=== PATIENT | female | born 1985 | race Caucasian/White ===

== ENCOUNTER 2020-06-11 18:19 | Inpatient (IN) | payer OTHER, SELFPAY ==
[2020-06-11] VITALS (8 sets, daily range): BP systolic 128–197; BP diastolic 69–146; PULSE 56–174; RESP 26–28; TEMP 36.5–36.8; O2SAT 98–100; BMI 21.2; BMI 19.6
--- NOTE | ~2020-06-11 | CT_ITS ---
CT HEAD WITHOUT CONTRAST CLINICAL INFORMATION: Cardiac arrest. COMPARISON: None available. TECHNIQUE: Contiguous axial imaging was performed from the skull base to vertex without intravenous administration of contrast. This CT examination was performed using dose optimization techniques as appropriate, variously including the following: *Automated exposure control *Adjustment of mA and/or kV according to patient size (this includes techniques or standardized protocols for targeted exams where dose is matched to indication/reason for exam; i.e. extremities or head) *Use of iterative reconstruction technique FINDINGS: Diffuse loss of curran to white matter differentiation throughout the cerebral hemispheres and cerebellar hemispheres bilaterally in keeping with global cerebral anoxic injury. Associated pseudo-subarachnoid hemorrhage with high density within the sulcal spaces related to cerebral edema opposing vasculature. I density along the tentorial leaflets and falx cerebri also most likely related to the presence of diffuse cerebral edema. There is diffuse cerebral sulcal effacement, partial effacement of the ventricular system, and partial effacement of the basilar cisterns and cistern surrounding the brainstem. Mild mucosal thickening within the ethmoid air cells and sphenoid sinuses bilaterally. The mastoid air cells are clear. CT/CT head/brain wo con IMPRESSION: Imaging findings compatible with severe global cerebral/cerebellar anoxic injury. There is curran white matter differentiation loss throughout the entire supratentorial and infratentorial brain. Cerebral edema results in diffuse cerebral sulcal effacement, partial effacement of the basilar cisterns, and psuedo-subarachnoid hemorrhage in the setting of diffuse cerebral edema. Findings discussed with Dr. Cason at 8:10 PM on 06/11/2020.
--- NOTE | ~2020-06-11 | XR_ITS ---
EXAMINATION: XR CHEST CLINICAL INFORMATION: Line placement COMPARISON: None TECHNIQUE: Frontal view of the chest was obtained. FINDINGS: An ET tube is present 3.5 cm above the palomo. Right IJ line has its tip in the distal SVC. The exam is otherwise unremarkable. XR/XR chest 1V IMPRESSION: ET tube and right IJ line in good position. No acute intrathoracic disease.
--- NOTE | ~2020-06-11 | XR_ITS ---
EXAMINATION: XR CHEST CLINICAL INFORMATION: Organ donor protocol COMPARISON: Chest radiographs 06/13/2020, 06/11/2020 TECHNIQUE: Portable upright AP view of the chest was obtained. FINDINGS: Endotracheal tube tip is approximately 3.2 cm above palomo. Right internal jugular central venous line tip at level distal superior vena cava. The vascularity is normal. There is no pneumothorax, pleural reaction, infiltrate, or effusion. Suspect disc atelectasis right posterior medial base overlying the diaphragm. No segmental atelectasis. The costophrenic sulci are clear. The heart is normal in size. The hilar and mediastinal contours and bony structures are unremarkable. XR/XR chest 1V IMPRESSION: 1. Suspect disc atelectasis right posterior medial base. Lungs otherwise clear. 2. ET tube tip 3.2 cm above palomo. 3. Right IJ tip at distal SVC.
--- NOTE | ~2020-06-11 | XR_ITS ---
EXAMINATION: XR CHEST CLINICAL INFORMATION: Organ donor protocol COMPARISON: June 12, 2020 TECHNIQUE: AP portable view of the chest was obtained. FINDINGS: Endotracheal tube tip lies approximately 3.5 cm above the palomo. Right internal jugular central venous catheter seen with tip at caval atrial junction. No pneumothorax or pleural effusion identified. Heart normal size. No evidence of pulmonary edema. XR/XR chest 1V IMPRESSION: No acute disease. Endotracheal tube and right internal jugular central venous catheter in place.
--- NOTE | ~2020-06-11 | CT_ITS ---
EXAMINATION: CT CERVICAL SPINE WITHOUT CONTRAST CLINICAL INFORMATION: cardiac arrest with rosc COMPARISON: None TECHNIQUE: Coronal and sagittal reformatted images are performed at CT scanner This CT examination was performed using dose optimization techniques as appropriate, variously including the following: *Automated exposure control *Adjustment of mA and/or kV according to patient size (this includes techniques or standardized protocols for targeted exams where dose is matched to indication/reason for exam; i.e. extremities or head) *Use of iterative reconstruction technique DLP: 250.78 mGy-cm FINDINGS: Status post anterior cervical spine fusion at C5-C6 and C6-C7. No acute abnormality. No fracture. No subluxation. No prevertebral soft tissue swelling. There are spurs at the anterior and posterior endplates from degenerative disc disease at C4-C5 with disc height narrowing. Facet joints are normal. Endotracheal tube in place. CT/CT cervical spine wo con IMPRESSION: 1. No acute abnormality 2. Degenerative spondylosis of cervical spine. 3. Status post anterior fusion C5-C6 C6-C7.
--- NOTE | ~2020-06-11 | CT_ITS ---
EXAMINATION: CT CHEST WITHOUT CONTRAST CLINICAL INFORMATION: cardiac arrest with rosc COMPARISON: Chest x-ray 06/11/2020 TECHNIQUE: Multidetector volumetric CT imaging of the chest was done. Axial MIP volume rendering provided. Sagittal and coronal reformatted images were obtained. This CT examination was performed using dose optimization techniques as appropriate, variously including the following: *Automated exposure control *Adjustment of mA and/or kV according to patient size (this includes techniques or standardized protocols for targeted exams where dose is matched to indication/reason for exam; i.e. extremities or head) *Use of iterative reconstruction technique DLP: 217.94+6.72 mGy-cm FINDINGS: There is motion which limits study. LUNGS: The lungs are clear with no evidence of inflammation or nodules. MEDIASTINUM: Endotracheal tube approximately 2 cm above the palomo. There is a right central catheter in superior vena cava. The heart size is normal. No pericardial effusion. No mediastinal mass or significant lymphadenopathy. PLEURA: There is no pleural effusion. No pleural mass or thickening. AXILLA: No lymphadenopathy. UPPER ABDOMEN: Visualized portions of solid organs and upper abdomen are unremarkable. OSSEOUS STRUCTURES: Unremarkable. CT/CT chest wo con IMPRESSION: 1. No acute abnormality of chest. 2. Endotracheal tube catheter about 2 cm both palomo. 3. Central port catheter tip in superior vena cava.
--- NOTE | ~2020-06-11 | CT_ITS ---
EXAMINATION: CT CHEST WITHOUT CONTRAST CT ABDOMEN AND PELVIS WITHOUT CONTRAST CLINICAL INFORMATION: Organ donation. COMPARISON: CT 06/11/2020 TECHNIQUE: Multidetector volumetric imaging was performed through the chest, abdomen and pelvis without contrast. Sagittal and coronal reformatted images were obtained on the technologist's workstation. Axial MIP volume rendering provided. This CT examination was performed using dose optimization techniques as appropriate, variously including the following: *Automated exposure control *Adjustment of mA and/or kV according to patient size (this includes techniques or standardized protocols for targeted exams where dose is matched to indication/reason for exam; i.e. extremities or head) *Use of iterative reconstruction technique DLP: 706 mGy-cm. FINDINGS: CHEST: Lungs: The endotracheal tube terminates 3 cm above the palomo. The central airways are patent there is patchy airspace opacity dependently in the right lower lobe, new from previous. Minimal dependent right upper lobe opacity as well, also new from previous. No pleural effusion or pneumothorax. There are no pulmonary parenchymal nodules. Mediastinum: The heart is of normal size. There is no pericardial effusion. Right internal jugular central venous catheter in place. No hilar or mediastinal lymphadenopathy. Chest Wall/Axilla: No lymphadenopathy. No chest wall mass. ABDOMEN/PELVIS: Liver, Gallbladder, Biliary Tree: The liver is normal in size, shape, and attenuation. No focal hepatic lesion or biliary ductal dilatation is present. Layering appearance in the gallbladder lumen may represent sludge. No radiopaque stones. No gallbladder wall thickening or pericholecystic fluid. Pancreas: Unremarkable. Spleen: Unremarkable. Adrenal Glands: Unremarkable. Kidneys and Ureters: The kidneys are normal in size, shape, and attenuation. No hydronephrosis or hydroureter. Left midpole cluster of calcifications measuring up to 0.7 cm, 5 cm from the posterior axillary line. There are at least 3 right lower pole calculi which measure up to 0.2 cm. Bladder: Dunham catheter within the bladder. Gastrointestinal Tract: The stomach and small bowel appear unremarkable. No dilated loops of bowel or evidence of obstruction. No diverticulosis. No colonic wall thickening or adjacent inflammatory changes. No free air. Small amount of free fluid in the pelvis which appears simple.. The appendix is unremarkable. Abdominal Wall: No hernia is demonstrated. Lymphovascular Structures: Lymph nodes: Normal. Vascular: Unremarkable. Pelvic Viscera: The uterus and adnexa are unremarkable. OSSEOUS STRUCTURES: No suspicious sclerotic or lytic bone lesions are identified. Vertebral body height and alignment is maintained. CT/CT abdomen pelvis wo con IMPRESSION: 1. Dependent airspace opacities are now seen in the right lower lobe and right upper lobe, new from prior. This could be associated with aspiration. Endotracheal tube in place which terminates 3 cm above the palomo. 2. Bilateral nonobstructing renal calculi. 3. Likely gallbladder sludge.
--- NOTE | 2020-06-11 18:30 | ECG_ITS ---
Test Reason : POSC Blood Pressure : / mmHG Vent. Rate : 109 BPM Atrial Rate : 115 BPM P-R Int : 226 ms QRS Dur : 086 ms QT Int : 432 ms P-R-T Axes : 069 072 -18 degrees QTc Int : 581 ms Afib with RVR Marked ST abnormality, possible inferior subendocardial injury Marked ST abnormality, possible anterior subendocardial injury Prolonged QT Abnormal ECG No previous ECGs available Referred By: Milli Alfonso Electronically Signed By:Levar Restrepo
--- NOTE | 2020-06-11 18:51 | ED_ITS ---
HPI - CPR General Chief Complaint: Cardiac Arrest/CPR Stated Complaint: cardiac arrest Time Seen by Provider: 06/11/20 18:25 Source: EMS Mode of arrival: EMS Limitations: other (CPR in progress) History of Present Illness HPI narrative: 35 yo female with opiate use disorder last seen well at 530pm found unresponsive with needles near her - bystanders 15mg IN narcan no response, PD started CPR, EMS on scene at 545pm patient no neuro response, no breathing, asytole, given 1 round of epi, intubated 7.0 tube had ROSC of sinus tachycardia, patient in ED no neuro response hypotensive, pulses intact MD complaint: found unresponsive Onset (ago): hour(s) (530pm last seen well found 15 minutes later unreponsive) Timing confirmed by: other (bystanders) Place: home AED applied by bystander/residential finish carpenter: Yes Shock advised: No Downtime before ACLS arrival (mins): 15 Initial findings in the field: unresponsive, no respirations and no pulse ROSC in the field: Yes Associated injuries: No Associated symptoms: other (found with needles ) Known history of: drug abuse Treatments prior to arrival: intubation, BMV, chest compressions and epinephrine mgs # (1) Related Data Allergies Allergy/AdvReac Type Severity Reaction Status Date / Time No Known Allergies Allergy Verified 06/11/20 18:29 Review of Systems Review of Systems: ROS unable to be obtained due to unresponsive ongoing CPR [facility] Past Medical History Source: unable to obtain (CPR in progress no prior visits) Medical History (Updated 06/11/20 @ 22:31 by Faye Sarmiento RN) Substance abuse Social History Social History Household Members: Unknown / Unable to assess Unable to assess alcohol history related to: Unable to respond Smoking Status: Unknown if ever smoked Use of substances other than those prescribed or required for medical reasons: Yes Substance Use Type: Crack/Cocaine, Heroin, Marijuana, Opiates and Unknown Last Used Substance: Just Prior to Admission Last Used Substance Other:: utox positive marijuana and cocaine Spiritual Healthcare Practices: unable Advance Directives: No Advance Directives Information Provided: No Recently lost weight without trying: Unsure Physical Exam Vital Signs: Vital Signs: Last Vital Signs Temp 98.4 F 06/12/20 00:54 Pulse 127 H 06/12/20 00:54 Resp 28 H 06/12/20 00:54 BP 73/48 L 06/12/20 00:54 Pulse Ox 100 06/12/20 00:54 Body Mass Index 21.2 Appearance: Pale unresponsive, intubated Eyes: pupils 4mm fixed and dilated ENT: Pharynx no gag reflex, intubatd 7.0 Neck: Normal inspection. Neck supple. CVS: tachycardic heart rate and rhythm. Pulses decreased in legs 1+ Respiratory: intubated Breath sounds equal with bagging Abdomen: Soft and no trauma seen Skin: Skin cool to touch pale skin color. Normal skin turgor. Extremities: active track nguyen noted, IO placed Neuro: no response to painful stimuli, fixed and dilated pupils Course Course Course Narrative: given 100mcg of phenylephrine push dose for BPs 40 to 50 systolic during central line placement no response to levophed will add on phenylephrine given her tachycardia for better BP improvement called to bedside as the patient became acutely tachycardic with some 4 beat runs of VTACH and narrow irregular complex tachycardia unsure cause, I shut the levophed off immediately, call to Cardiology if this persists start amiodarone It was just discovered that in fact we believe 1000mcg of phenylephrine was pushed in error - charge machine operator aware, suspect half life of medication 30 minutes, may need to treat HTN with either phentolamine or nitroprusside CT scan done - ?SAH noted, will start nicardipine at this time, requested images sent to [facility] and will call [facility] 755pm call from [facility] 812pm - diffuse anoxic injury, bilateral uncal herniation, SAH because of edema - doubt NSGY would be beneficial call to our ICU team given CT head will admit, cancel transfer to [facility] discussed with her boyfriend Mando about grave prognosis, attempting to reach mother Kaitlin Coleman [phone] - able to contact aware of grave prognosis and CT findings Procedures Central Line Placement Right IJ: Time Out Performed: Yes Patient Placed on Monitor/Pulse Ox: Yes MD Prep: mask, gown, gloves and other Central Line Prep: Chlorhexidine scrub Central Line Lumen Inserted: triple Post Procedure: sutured in place, good blood return, all ports aspirated, flushed, capped and sterile dressing applied Post Procedure X-Ray: tip of catheter in good position Patient Tolerated Procedure: well Complications: none MDM - Cardiac Arrest/CPR MDM Narrative Medical decision making narrative: 35 yo female with substance abuse found with needles possible prolonged downtime, no neuro response at this time, will place on vent, image CT head/cspine/chest, patient was ROSC in field with concerning outcome given her lack of neurologic function at this time Lab Data Result diagrams: 06/11/20 18:47 06/11/20 18:48 Labs: Lab Results 06/11/20 06/11/20 06/11/20 Range/Units 18:22 18:47 18:47 WBC 10.3 (4.8-10.8) X10*3/uL RBC 2.99 L (4.20-5.50) X10*6/uL Hgb 9.5 L (12.0-16.0) g/dl Hct 30.3 L (37-47) % MCV 101.3 H (80-98) fL MCH 31.8 (27.0-33.0) pg MCHC 31.4 (31.0-35.0) g/dl RDW 13.1 (11.0-16.0) % Plt Count 240 (160-400) X10*3/uL MPV 9.8 (9.4-12.3) fL Immature Gran % (Auto) Cancelled Neut % (Auto) Cancelled Lymph % (Auto) Cancelled [place] % (Auto) Cancelled Eos % (Auto) Cancelled Baso % (Auto) Cancelled Lymph # (Auto) Cancelled [place] # (Auto) Cancelled Eos # (Auto) Cancelled Baso # (Auto) Cancelled Abs Immat Gran (auto) Cancelled Absolute Neuts (auto) Cancelled Absolute Nucleated RBC 0.000 (0.0-0.012) X10*3/uL Nucleated RBC % (auto) 0.0 (0.0-0.2) /100WBC Neutrophils % (Manual) 60 (45-73) % Band Neutrophils % 4 (3-5) % Lymphocytes % (Manual) 28 (20-40) % Monocytes % (Manual) 4 (2-11) % Eosinophils % (Manual) 2 (0-4) % Metamyelocytes % 1 % Myelocytes % 1 % Abs Neuts (Manual) 6.6 (2.2-7.9) X10*3/uL Lymphocytes # (Manual) 2.9 (0.6-4.8) X10*3/uL Monocytes # (Manual) 0.4 (0.0-1.2) X10*3/uL Eosinophils # (Manual) 0.2 (0.0-0.8) X10*3/UL Metamyelocytes # 0.1 X10*3/uL Myelocytes # 0.1 X10*/uL Platelet Estimate NORMAL (NORMAL) Plt Morphology Comment NORMAL RBC Morphology NORMAL PT 13.2 H (10.8-13.0) SEC INR 1.1 (0.9-1.1) VBG pH (7.32-7.43) VBG pCO2 mmHg VBG pO2 mmHg VBG HCO3 (22-26) mmol/L VBG O2 Saturation % VBG Base Excess mmol/L Sodium (135-145) mmol/L Potassium (3.3-5.1) mmol/L Chloride (96-108) mmol/L Carbon Dioxide (22-29) mmol/L Anion Gap (12-20) BUN (9-16) mg/dL Creatinine (0.5-1.4) mg/dL Estim Creat Clear Calc Estimated GFR POC Glucose 325 H (60-115) mg/dL Random Glucose (60-115) mg/dL Lactic Acid (0.5-2.0) mmol/L Calcium (8.4-10.2) mg/dL Magnesium (1.6-2.6) mg/dL Total Bilirubin (0.0-1.0) mg/dL Direct Bilirubin (0.0-0.5) mg/dL AST (5-31) U/L ALT (0-31) U/L Alkaline Phosphatase (39-117) U/L Troponin I High Sens (<3.5-17.0) ng/L Total Protein (6.5-8.0) g/dL Albumin (3.5-5.0) g/dL Lipase (8-78) U/L Urine Color Urine Appearance Urine pH (5.0-8.0) Ur Specific [place] (1.005-1.025) Urine Protein (NEG-TRACE) MG/DL Urine Glucose (UA) (NEG) MG/DL Urine Ketones (NEG) MG/DL Urine Blood (NEG) Urine Nitrite (NEG) Ur Leukocyte Esterase (NEG) Urine RBC (0) /HPF Urine WBC (0-4) /HPF Ur Squamous Epith Cells /LPF Urine Bacteria /LPF Urine Test (NEGATIVE) Salicylates (15-30) mg/dL Urine Opiates Screen (Not Detect) Acetaminophen (<30) mcg/mL Ur Barbiturates Screen (Not Detect) Ur Phencyclidine Scrn (Not Detect) Ur Amphetamines Screen (Not Detect) U Benzodiazepines Scrn (Not Detect) Urine Cocaine Screen (Not Detect) U Marijuana (THC) Screen (Not Detect) Ethyl Alcohol mg/dL COVID-19 ([facility]US) (Negative) COVID-19 Clin Com 06/11/20 06/11/20 06/11/20 Range/Units 18:47 18:47 18:48 WBC (4.8-10.8) X10*3/uL RBC (4.20-5.50) X10*6/uL Hgb (12.0-16.0) g/dl Hct (37-47) % MCV (80-98) fL MCH (27.0-33.0) pg MCHC (31.0-35.0) g/dl RDW (11.0-16.0) % Plt Count (160-400) X10*3/uL MPV (9.4-12.3) fL Immature Gran % (Auto) Neut % (Auto) Lymph % (Auto) [place] % (Auto) Eos % (Auto) Baso % (Auto) Lymph # (Auto) [place] # (Auto) Eos # (Auto) Baso # (Auto) Abs Immat Gran (auto) Absolute Neuts (auto) Absolute Nucleated RBC (0.0-0.012) X10*3/uL Nucleated RBC % (auto) (0.0-0.2) /100WBC Neutrophils % (Manual) (45-73) % Band Neutrophils % (3-5) % Lymphocytes % (Manual) (20-40) % Monocytes % (Manual) (2-11) % Eosinophils % (Manual) (0-4) % Metamyelocytes % % Myelocytes % % Abs Neuts (Manual) (2.2-7.9) X10*3/uL Lymphocytes # (Manual) (0.6-4.8) X10*3/uL Monocytes # (Manual) (0.0-1.2) X10*3/uL Eosinophils # (Manual) (0.0-0.8) X10*3/UL Metamyelocytes # X10*3/uL Myelocytes # X10*/uL Platelet Estimate (NORMAL) Plt Morphology Comment RBC Morphology PT (10.8-13.0) SEC INR (0.9-1.1) VBG pH (7.32-7.43) VBG pCO2 mmHg VBG pO2 mmHg VBG HCO3 (22-26) mmol/L VBG O2 Saturation % VBG Base Excess mmol/L Sodium 142 (135-145) mmol/L Potassium 4.0 (3.3-5.1) mmol/L Chloride 111 H (96-108) mmol/L Carbon Dioxide 17 L (22-29) mmol/L Anion Gap 18 (12-20) BUN 17 H (9-16) mg/dL Creatinine 1.10 (0.5-1.4) mg/dL Estim Creat Clear Calc TNP Estimated GFR 56 POC Glucose (60-115) mg/dL Random Glucose 271 H (60-115) mg/dL Lactic Acid (0.5-2.0) mmol/L Calcium 6.9 L (8.4-10.2) mg/dL Magnesium 2.0 (1.6-2.6) mg/dL Total Bilirubin 0.5 (0.0-1.0) mg/dL Direct Bilirubin 0.2 (0.0-0.5) mg/dL AST 65 H (5-31) U/L ALT 40 H (0-31) U/L Alkaline Phosphatase 61 (39-117) U/L Troponin I High Sens 4.7 (<3.5-17.0) ng/L Total Protein 4.3 L (6.5-8.0) g/dL Albumin 2.6 L (3.5-5.0) g/dL Lipase 37 (8-78) U/L Urine Color Urine Appearance Urine pH (5.0-8.0) Ur Specific [place] (1.005-1.025) Urine Protein (NEG-TRACE) MG/DL Urine Glucose (UA) (NEG) MG/DL Urine Ketones (NEG) MG/DL Urine Blood (NEG) Urine Nitrite (NEG) Ur Leukocyte Esterase (NEG) Urine RBC (0) /HPF Urine WBC (0-4) /HPF Ur Squamous Epith Cells /LPF Urine Bacteria /LPF Urine Test (NEGATIVE) Salicylates < 5.0 L (15-30) mg/dL Urine Opiates Screen (Not Detect) Acetaminophen < 1 (<30) mcg/mL Ur Barbiturates Screen (Not Detect) Ur Phencyclidine Scrn (Not Detect) Ur Amphetamines Screen (Not Detect) U Benzodiazepines Scrn (Not Detect) Urine Cocaine Screen (Not Detect) U Marijuana (THC) Screen (Not Detect) Ethyl Alcohol mg/dL COVID-19 ([facility]US) (Negative) COVID-19 Clin Com 06/11/20 06/11/20 06/11/20 Range/Units 18:48 18:49 18:51 WBC (4.8-10.8) X10*3/uL RBC (4.20-5.50) X10*6/uL Hgb (12.0-16.0) g/dl Hct (37-47) % MCV (80-98) fL MCH (27.0-33.0) pg MCHC (31.0-35.0) g/dl RDW (11.0-16.0) % Plt Count (160-400) X10*3/uL MPV (9.4-12.3) fL Immature Gran % (Auto) Neut % (Auto) Lymph % (Auto) [place] % (Auto) Eos % (Auto) Baso % (Auto) Lymph # (Auto) [place] # (Auto) Eos # (Auto) Baso # (Auto) Abs Immat Gran (auto) Absolute Neuts (auto) Absolute Nucleated RBC (0.0-0.012) X10*3/uL Nucleated RBC % (auto) (0.0-0.2) /100WBC Neutrophils % (Manual) (45-73) % Band Neutrophils % (3-5) % Lymphocytes % (Manual) (20-40) % Monocytes % (Manual) (2-11) % Eosinophils % (Manual) (0-4) % Metamyelocytes % % Myelocytes % % Abs Neuts (Manual) (2.2-7.9) X10*3/uL Lymphocytes # (Manual) (0.6-4.8) X10*3/uL Monocytes # (Manual) (0.0-1.2) X10*3/uL Eosinophils # (Manual) (0.0-0.8) X10*3/UL Metamyelocytes # X10*3/uL Myelocytes # X10*/uL Platelet Estimate (NORMAL) Plt Morphology Comment RBC Morphology PT (10.8-13.0) SEC INR (0.9-1.1) VBG pH (7.32-7.43) VBG pCO2 mmHg VBG pO2 mmHg VBG HCO3 (22-26) mmol/L VBG O2 Saturation % VBG Base Excess mmol/L Sodium (135-145) mmol/L Potassium (3.3-5.1) mmol/L Chloride (96-108) mmol/L Carbon Dioxide (22-29) mmol/L Anion Gap (12-20) BUN (9-16) mg/dL Creatinine (0.5-1.4) mg/dL Estim Creat Clear Calc Estimated GFR POC Glucose (60-115) mg/dL Random Glucose (60-115) mg/dL Lactic Acid 9.4 H* (0.5-2.0) mmol/L Calcium (8.4-10.2) mg/dL Magnesium (1.6-2.6) mg/dL Total Bilirubin (0.0-1.0) mg/dL Direct Bilirubin (0.0-0.5) mg/dL AST (5-31) U/L ALT (0-31) U/L Alkaline Phosphatase (39-117) U/L Troponin I High Sens (<3.5-17.0) ng/L Total Protein (6.5-8.0) g/dL Albumin (3.5-5.0) g/dL Lipase (8-78) U/L Urine Color Urine Appearance Urine pH (5.0-8.0) Ur Specific [place] (1.005-1.025) Urine Protein (NEG-TRACE) MG/DL Urine Glucose (UA) (NEG) MG/DL Urine Ketones (NEG) MG/DL Urine Blood (NEG) Urine Nitrite (NEG) Ur Leukocyte Esterase (NEG) Urine RBC (0) /HPF Urine WBC (0-4) /HPF Ur Squamous Epith Cells /LPF Urine Bacteria /LPF Urine Test (NEGATIVE) Salicylates (15-30) mg/dL Urine Opiates Screen (Not Detect) Acetaminophen (<30) mcg/mL Ur Barbiturates Screen (Not Detect) Ur Phencyclidine Scrn (Not Detect) Ur Amphetamines Screen (Not Detect) U Benzodiazepines Scrn (Not Detect) Urine Cocaine Screen (Not Detect) U Marijuana (THC) Screen (Not Detect) Ethyl Alcohol < 10 mg/dL COVID-19 ([facility]) Negative (Negative) COVID-19 Clin Com See Note 06/11/20 06/11/20 06/11/20 Range/Units 19:50 19:50 19:50 WBC (4.8-10.8) X10*3/uL RBC (4.20-5.50) X10*6/uL Hgb (12.0-16.0) g/dl Hct (37-47) % MCV (80-98) fL MCH (27.0-33.0) pg MCHC (31.0-35.0) g/dl RDW (11.0-16.0) % Plt Count (160-400) X10*3/uL MPV (9.4-12.3) fL Immature Gran % (Auto) Neut % (Auto) Lymph % (Auto) [place] % (Auto) Eos % (Auto) Baso % (Auto) Lymph # (Auto) [place] # (Auto) Eos # (Auto) Baso # (Auto) Abs Immat Gran (auto) Absolute Neuts (auto) Absolute Nucleated RBC (0.0-0.012) X10*3/uL Nucleated RBC % (auto) (0.0-0.2) /100WBC Neutrophils % (Manual) (45-73) % Band Neutrophils % (3-5) % Lymphocytes % (Manual) (20-40) % Monocytes % (Manual) (2-11) % Eosinophils % (Manual) (0-4) % Metamyelocytes % % Myelocytes % % Abs Neuts (Manual) (2.2-7.9) X10*3/uL Lymphocytes # (Manual) (0.6-4.8) X10*3/uL Monocytes # (Manual) (0.0-1.2) X10*3/uL Eosinophils # (Manual) (0.0-0.8) X10*3/UL Metamyelocytes # X10*3/uL Myelocytes # X10*/uL Platelet Estimate (NORMAL) Plt Morphology Comment RBC Morphology PT (10.8-13.0) SEC INR (0.9-1.1) VBG pH (7.32-7.43) VBG pCO2 mmHg VBG pO2 mmHg VBG HCO3 (22-26) mmol/L VBG O2 Saturation % VBG Base Excess mmol/L Sodium (135-145) mmol/L Potassium (3.3-5.1) mmol/L Chloride (96-108) mmol/L Carbon Dioxide (22-29) mmol/L Anion Gap (12-20) BUN (9-16) mg/dL Creatinine (0.5-1.4) mg/dL Estim Creat Clear Calc Estimated GFR POC Glucose (60-115) mg/dL Random Glucose (60-115) mg/dL Lactic Acid (0.5-2.0) mmol/L Calcium (8.4-10.2) mg/dL Magnesium (1.6-2.6) mg/dL Total Bilirubin (0.0-1.0) mg/dL Direct Bilirubin (0.0-0.5) mg/dL AST (5-31) U/L ALT (0-31) U/L Alkaline Phosphatase (39-117) U/L Troponin I High Sens (<3.5-17.0) ng/L Total Protein (6.5-8.0) g/dL Albumin (3.5-5.0) g/dL Lipase (8-78) U/L Urine Color STRAW Urine Appearance CLEAR Urine pH 7.0 (5.0-8.0) Ur Specific [place] 1.015 (1.005-1.025) Urine Protein 1+ H (NEG-TRACE) MG/DL Urine Glucose (UA) 250 H (NEG) MG/DL Urine Ketones NEG (NEG) MG/DL Urine Blood 2+ H (NEG) Urine Nitrite NEG (NEG) Ur Leukocyte Esterase NEG (NEG) Urine RBC 15-29 H (0) /HPF Urine WBC 1-4 (0-4) /HPF Ur Squamous Epith Cells 1+ /LPF Urine Bacteria NONE /LPF Urine Test NEGATIVE (NEGATIVE) Salicylates (15-30) mg/dL Urine Opiates Screen Not Detected (Not Detect) Acetaminophen (<30) mcg/mL Ur Barbiturates Screen Not Detected (Not Detect) Ur Phencyclidine Scrn Not Detected (Not Detect) Ur Amphetamines Screen Not Detected (Not Detect) U Benzodiazepines Scrn Not Detected (Not Detect) Urine Cocaine Screen POSITIVE H (Not Detect) U Marijuana (THC) Screen POSITIVE H (Not Detect) Ethyl Alcohol mg/dL COVID-19 ([facility]) (Negative) COVID-19 Clin Com 06/11/20 Range/Units 20:01 WBC (4.8-10.8) X10*3/uL RBC (4.20-5.50) X10*6/uL Hgb (12.0-16.0) g/dl Hct (37-47) % MCV (80-98) fL MCH (27.0-33.0) pg MCHC (31.0-35.0) g/dl RDW (11.0-16.0) % Plt Count (160-400) X10*3/uL MPV (9.4-12.3) fL Immature Gran % (Auto) Neut % (Auto) Lymph % (Auto) [place] % (Auto) Eos % (Auto) Baso % (Auto) Lymph # (Auto) [place] # (Auto) Eos # (Auto) Baso # (Auto) Abs Immat Gran (auto) Absolute Neuts (auto) Absolute Nucleated RBC (0.0-0.012) X10*3/uL Nucleated RBC % (auto) (0.0-0.2) /100WBC Neutrophils % (Manual) (45-73) % Band Neutrophils % (3-5) % Lymphocytes % (Manual) (20-40) % Monocytes % (Manual) (2-11) % Eosinophils % (Manual) (0-4) % Metamyelocytes % % Myelocytes % % Abs Neuts (Manual) (2.2-7.9) X10*3/uL Lymphocytes # (Manual) (0.6-4.8) X10*3/uL Monocytes # (Manual) (0.0-1.2) X10*3/uL Eosinophils # (Manual) (0.0-0.8) X10*3/UL Metamyelocytes # X10*3/uL Myelocytes # X10*/uL Platelet Estimate (NORMAL) Plt Morphology Comment RBC Morphology PT (10.8-13.0) SEC INR (0.9-1.1) VBG pH 7.32 (7.32-7.43) VBG pCO2 36 mmHg VBG pO2 130 mmHg VBG HCO3 19 L (22-26) mmol/L VBG O2 Saturation 98.0 % VBG Base Excess -6.2 mmol/L Sodium (135-145) mmol/L Potassium (3.3-5.1) mmol/L Chloride (96-108) mmol/L Carbon Dioxide (22-29) mmol/L Anion Gap (12-20) BUN (9-16) mg/dL Creatinine (0.5-1.4) mg/dL Estim Creat Clear Calc Estimated GFR POC Glucose (60-115) mg/dL Random Glucose (60-115) mg/dL Lactic Acid (0.5-2.0) mmol/L Calcium (8.4-10.2) mg/dL Magnesium (1.6-2.6) mg/dL Total Bilirubin (0.0-1.0) mg/dL Direct Bilirubin (0.0-0.5) mg/dL AST (5-31) U/L ALT (0-31) U/L Alkaline Phosphatase (39-117) U/L Troponin I High Sens (<3.5-17.0) ng/L Total Protein (6.5-8.0) g/dL Albumin (3.5-5.0) g/dL Lipase (8-78) U/L Urine Color Urine Appearance Urine pH (5.0-8.0) Ur Specific [place] (1.005-1.025) Urine Protein (NEG-TRACE) MG/DL Urine Glucose (UA) (NEG) MG/DL Urine Ketones (NEG) MG/DL Urine Blood (NEG) Urine Nitrite (NEG) Ur Leukocyte Esterase (NEG) Urine RBC (0) /HPF Urine WBC (0-4) /HPF Ur Squamous Epith Cells /LPF Urine Bacteria /LPF Urine Test (NEGATIVE) Salicylates (15-30) mg/dL Urine Opiates Screen (Not Detect) Acetaminophen (<30) mcg/mL Ur Barbiturates Screen (Not Detect) Ur Phencyclidine Scrn (Not Detect) Ur Amphetamines Screen (Not Detect) U Benzodiazepines Scrn (Not Detect) Urine Cocaine Screen (Not Detect) U Marijuana (THC) Screen (Not Detect) Ethyl Alcohol mg/dL COVID-19 ([facility]) (Negative) COVID-19 Clin Com ECG Data Attestation: I personally reviewed and interpreted this ECG as follows: ECG interpretation date: 06/11/20 ECG interpretation time: 19:10 Interpretation: Rate: 109 Rhythm: narrow complex tachycardia Ewing: normal Normal P waves. Normal EDWINA. Normal QRS complex. ST T wave : ST depression inf leads, no RONNELL, ST depression V3-V4 qTC: prolonged qTc prior studies: none The study has been interpreted contemporaneously by me. . Critical Care Time Critical Care Time Critical Care Time: Yes Total Critical Care Time: 120 Attestation: direct bedside care, family converation, 2L of IVF, pressor support, calls to Radiology, medical consult I attest to this time spent taking care of the patient Discharge Plan Discharge Clinical Impression: Cardiac arrest, Anoxic brain injury Patient Disposition: Admitted As Inpatient Interventions: Admission Worksheet (ED) Last Done: 06/11/20 21:48 Discharge Date/Time: 06/11/20 21:49
[2020-06-11] MEDS: Magnesium Sulfate/H2O 2 GM/50 ML PIGGYBACK IV (19:05)
--- NOTE | 2020-06-11 19:10 | PC.NURSE ---
Assumed care of pt. Mag amador. Right IJ access obtained and confirmed with x-ray by provider.
[2020-06-11 19:35] LABS: COVID-19 Test Negative (Negative)
[2020-06-11 19:40] LABS: Hematocrit 30.3 % (37-47); Hemoglobin 9.5 g/dl (12.0-16.0); Mean Corpuscular HGB Conc 31.4 g/dl (31.0-35.0); Mean Corpuscular Hemoglobin 31.8 pg (27.0-33.0); Mean Corpuscular Volume 101.3 fL (80-98); Mean Platelet Volume 9.8 fL (9.4-12.3); Platelet Count 240 X10*3/uL (160-400); Red Blood Count 2.99 X10*6/uL (4.20-5.50); Red Cell Distribution Width 13.1 % (11.0-16.0); White Blood Count 10.3 X10*3/uL (4.8-10.8)
[2020-06-11 19:41] LABS: INTERNATIONAL NORM RATIO 1.1 (0.9-1.1); Prothrombin Time 13.2 SEC (10.8-13.0)
[2020-06-11 19:43] LABS: Ethanol < 10 mg/dL
[2020-06-11 19:46] LABS: Lactic Acid 9.4 mmol/L (0.5-2.0)
[2020-06-11 19:49] LABS: Alanine Aminotransferase 40 U/L (0-31); Albumin Level 2.6 g/dL (3.5-5.0); Alkaline Phosphatase 61 U/L (39-117); Anion Gap 18 (12-20); Aspartate Amino Transferase 65 U/L (5-31); Bilirubin Direct 0.2 mg/dL (0.0-0.5); Bilirubin Total 0.5 mg/dL (0.0-1.0); Blood Urea Nitrogen 17 mg/dL (9-16); Calcium 6.9 mg/dL (8.4-10.2); Carbon Dioxide 17 mmol/L (22-29); Chloride 111 mmol/L (96-108); Estimated Glomerular Filt Rate 56; Glucose Random 271 mg/dL (60-115); Sodium 142 mmol/L (135-145); Total Protein 4.3 g/dL (6.5-8.0)
[2020-06-11 19:49] LABS: Acetaminophen LAB < 1 mcg/mL (<30); Lipase 37 U/L (8-78); Salicylate < 5.0 mg/dL (15-30)
[2020-06-11] MEDS: Midazolam HCl/PF 2 MG/2 ML VIAL IVPUSH ×3 (19:50→21:19)
[2020-06-11] MEDS: niCARdipine HCL 25 MG in 0.9 % Sodium Chloride 250 ML 52 MG IVCONT (20:05)
[2020-06-11 20:08] LABS: VBG Base Excess -6.2 mmol/L; VBG HCO3 19 mmol/L (22-26); VBG pCO2 36 mmHg; VBG pH 7.32 (7.32-7.43); VBG pO2 130 mmHg
[2020-06-11 20:09] LABS: Venous Blood Gas Refer to POC result
[2020-06-11] MEDS: Sodium Bicarbonate 8.4% 50 MEQ/50 ML VIAL IVPUSH (20:09)
[2020-06-11 20:12] LABS: Troponin-I High Sensitivity 4.7 ng/L (<3.5-17.0)
[2020-06-11 20:17] LABS: Band Neutrophils Percent 4 % (3-5); Eosinophils Absolute Manual 0.2 X10*3/UL (0.0-0.8); Eosinophils Percent Manual 2 % (0-4); Lymphocytes Absolute Manual 2.9 X10*3/uL (0.6-4.8); Lymphocytes Percent Manual 28 % (20-40); Metamyelocytes Absolute 0.1 X10*3/uL; Metamyelocytes Percent 1 %; Monocytes Absolute Manual 0.4 X10*3/uL (0.0-1.2); Monocytes Percent Manual 4 % (2-11); Myelocytes Absolute 0.1 X10*/uL; Myelocytes Percent 1 %; Neutrophils Absolute Manual 6.6 X10*3/uL (2.2-7.9); Neutrophils Percent Manual 60 % (45-73); Platelet Estimate NORMAL (NORMAL); Platelet Morphology Comment NORMAL; RBC Morphology NORMAL
[2020-06-11 20:18] LABS: Glucose Urine UA 250 MG/DL (NEG); Leukocyte Esterase Urine NEG (NEG); Nitrite Urine NEG (NEG); Specific Gravity - Urine 1.015 (1.005-1.025); Urine Blood 2+ (NEG); Urine Ketones NEG (NEG); Urine Protein 1+ MG/DL (NEG-TRACE)
[2020-06-11 20:20] LABS: Appearance Urine CLEAR; Color Urine STRAW
--- NOTE | 2020-06-11 20:20 | PC.NURSE ---
Pt about to head to CT when became HTN and tachy into 160's. Provider bedside versed given x2 per verbal order. EKG obtained and cardiology consulted. CT completed. Nicardipine started after HTN remained post versed doses.
[2020-06-11 20:27] LABS: Squamous Epithelial Cell Urine 1+ /LPF
[2020-06-11 20:28] LABS: UPreg QC Valid YES; Urine Pregnancy NEGATIVE (NEGATIVE)
[2020-06-11 20:49] LABS: Amphetamine Screen Urine Not Detected (Not Detect); Barbiturates, Urine Not Detected (Not Detect); Benzodiazepines Screen Urine Not Detected (Not Detect); Cannabinoid Screen Urine POSITIVE (Not Detect); Cocaine Screen Urine POSITIVE (Not Detect); Opiate Screen Urine Not Detected (Not Detect); Phencyclidine Screen Urine Not Detected (Not Detect)
--- NOTE | 2020-06-11 20:56 | PC.NURSE ---
Report called to Isbael in ICU. Plan to draw BC and transfer pt to ICU.
[2020-06-11 21:12] LABS: Reflex Lactate? Lactic Acid Added
--- NOTE | 2020-06-11 21:22 | PM.CCHP ---
History of Present Illness Date of Service: 06/11/20 Chief Complaint: Unresponsive The patient 35-year-old female with a known opiate use disorder who presented to the emergency room for cardiac arrest after found unresponsive with needles nearby by a bystander. She was asystole, the police department started CPR on the scene, EMS intubated on the field, ROSC was achieved after approximately 15 minutes of CPR and X1 round of epinephrine. She also received 15mg IN narcan. On arrival to the emergency room patient is severely hypotensive and tachycardic. Was given phenylephrine IV push for central line placement. And started on Levophed. Patient shortly became severely hypertensive, There is some question regarding phenylephrine dosing. Order was 100 mcg, but believe patient received 1000 mg, which could explain the patient's sudden hypertension. Laboratory data significant for: bicarb 17, BUN 17, creatinine 1.10, lactic 9.4, calcium 6.9, AST 65, ALT 40, albumin 2.6. Toxicology: positive for cocaine and marijuana Imaging Head CT: Diffuse anoxic injury, Cerebral edema results in diffuse cerebral sulcal effacement, partial effacement of the basilar cisterns, and pseudo-subarachnoid hemorrhage in the setting of diffuse cerebral edema. ED physician, Dr. Cason had extensive conversation with patient boyfriend Mando as well as mother Kaitlin ([phone]) regarding patient prognosis, they will like to continue full code status Review of Systems Review of Systems: Unable to do, patient intubated [facility] Past Medical History Medical History (Updated 06/11/20 @ 22:31 by Faye Sarmiento RN) Substance abuse Social History Social History Household Members: Unknown / Unable to assess Unable to assess alcohol history related to: Unable to respond Smoking Status: Unknown if ever smoked Use of substances other than those prescribed or required for medical reasons: Yes Substance Use Type: Crack/Cocaine, Heroin, Marijuana, Opiates and Unknown Last Used Substance: Just Prior to Admission Last Used Substance Other:: utox positive marijuana and cocaine Spiritual Healthcare Practices: unable Advance Directives: No Advance Directives Information Provided: No Recently lost weight without trying: Unsure Meds Allergies Allergy/AdvReac Type Severity Reaction Status Date / Time No Known Allergies Allergy Verified 06/11/20 18:29 Active Medications: Current Medications Generic Name Dose Route Start Last Admin Trade Name Freq PRN Reason Stop Dose Admin Norepinephrine Bitartrate 8 mg in 250 mls @ 0 mls/hr 06/11/20 19:15 06/11/20 18:45 Levophed IVCONT 0.05 mcg/kg/min .Q0M SAWYER 5.06 mls/hr Administration Protocol Per Protocol Midazolam HCl 50 mg in 50 mls @ 2 mls/hr 06/11/20 19:45 Versed IVCONT .Q24H SAWYER 2 MG/HR Fentanyl 1,000 mcg in 100 mls @ 0 mls/hr 06/11/20 19:45 Sublimaze/Ns IVCONT .Q0M SAWYER Protocol Per Protocol Physical Exam Vital Signs: Vital Signs: Last Vital Signs Pulse 156 H 06/11/20 20:05 BP 197/146 H 06/11/20 20:05 Pulse Ox 100 06/11/20 18:30 Body Mass Index 21.2 Const: Other: Intubated Eyes: Pupils: Dilated pupils and Fixed pupils Neck: Neck: Yes supple and Yes no JVD Resp: Other: Intubated on AC Auscultation: clear to auscultation bilaterally Cardio: Jugular venous distension: no JVD Rate: tachycardic Rhythm: regular rhythm Heart sounds: S1 normal heart sound present and S2 normal heart sound present GI: Palpation (GI): Soft to palpation Auscultation: normal bowel sounds Skin: Other: Track nguyen visible on extremities General skin exam: dry skin Neuro: Other: Patient has no gag, does not withdraw from painful stimuli in all extremities, pupils fixed and dilated. Results Labs CBC and Chem 7: 06/11/20 18:47 06/11/20 18:48 Labs: Laboratory Results - last 24 hr 06/11/20 06/11/20 06/11/20 18:47 18:47 18:47 MCV 101.3 H MCH 31.8 MCHC 31.4 RDW 13.1 Plt Count 240 MPV 9.8 Immature Gran % (Auto) Cancelled Neut % (Auto) Cancelled Lymph % (Auto) Cancelled Kings % (Auto) Cancelled Eos % (Auto) Cancelled Baso % (Auto) Cancelled Lymph # (Auto) Cancelled Kings # (Auto) Cancelled Eos # (Auto) Cancelled Baso # (Auto) Cancelled Abs Immat Gran (auto) Cancelled Absolute Neuts (auto) Cancelled Absolute Nucleated RBC 0.000 Nucleated RBC % (auto) 0.0 Neutrophils % (Manual) 60 Band Neutrophils % 4 Lymphocytes % (Manual) 28 Monocytes % (Manual) 4 Eosinophils % (Manual) 2 Metamyelocytes % 1 Myelocytes % 1 Abs Neuts (Manual) 6.6 Lymphocytes # (Manual) 2.9 Monocytes # (Manual) 0.4 Eosinophils # (Manual) 0.2 Metamyelocytes # 0.1 Myelocytes # 0.1 Platelet Estimate NORMAL Plt Morphology Comment NORMAL RBC Morphology NORMAL PT 13.2 H INR 1.1 VBG pH VBG pCO2 VBG pO2 VBG HCO3 VBG O2 Saturation VBG Base Excess Anion Gap Estim Creat Clear Calc Estimated GFR Random Glucose Lactic Acid Calcium Magnesium 2.0 Total Bilirubin Direct Bilirubin AST ALT Alkaline Phosphatase Troponin I High Sens Total Protein Albumin Lipase 37 Urine Color Urine Appearance Urine pH Ur Specific [place] Urine Protein Urine Glucose (UA) Urine Ketones Urine Blood Urine Nitrite Ur Leukocyte Esterase Urine RBC Urine WBC Ur Squamous Epith Cells Urine Bacteria Urine Test Salicylates < 5.0 L Urine Opiates Screen Acetaminophen < 1 Ur Barbiturates Screen Ur Phencyclidine Scrn Ur Amphetamines Screen U Benzodiazepines Scrn Urine Cocaine Screen U Marijuana (THC) Screen Ethyl Alcohol COVID-19 (JESUS) COVID-19 Clin Com 06/11/20 06/11/20 06/11/20 18:47 18:48 18:48 MCV MCH MCHC RDW Plt Count MPV Immature Gran % (Auto) Neut % (Auto) Lymph % (Auto) Kings % (Auto) Eos % (Auto) Baso % (Auto) Lymph # (Auto) Kings # (Auto) Eos # (Auto) Baso # (Auto) Abs Immat Gran (auto) Absolute Neuts (auto) Absolute Nucleated RBC Nucleated RBC % (auto) Neutrophils % (Manual) Band Neutrophils % Lymphocytes % (Manual) Monocytes % (Manual) Eosinophils % (Manual) Metamyelocytes % Myelocytes % Abs Neuts (Manual) Lymphocytes # (Manual) Monocytes # (Manual) Eosinophils # (Manual) Metamyelocytes # Myelocytes # Platelet Estimate Plt Morphology Comment RBC Morphology PT INR VBG pH VBG pCO2 VBG pO2 VBG HCO3 VBG O2 Saturation VBG Base Excess Anion Gap 18 Estim Creat Clear Calc TNP Estimated GFR 56 Random Glucose 271 H Lactic Acid Calcium 6.9 L Magnesium Total Bilirubin 0.5 Direct Bilirubin 0.2 AST 65 H ALT 40 H Alkaline Phosphatase 61 Troponin I High Sens 4.7 Total Protein 4.3 L Albumin 2.6 L Lipase Urine Color Urine Appearance Urine pH Ur Specific [place] Urine Protein Urine Glucose (UA) Urine Ketones Urine Blood Urine Nitrite Ur Leukocyte Esterase Urine RBC Urine WBC Ur Squamous Epith Cells Urine Bacteria Urine Test Salicylates Urine Opiates Screen Acetaminophen Ur Barbiturates Screen Ur Phencyclidine Scrn Ur Amphetamines Screen U Benzodiazepines Scrn Urine Cocaine Screen U Marijuana (THC) Screen Ethyl Alcohol < 10 COVID-19 (JESUS) COVID-19 Clin Com 06/11/20 06/11/20 06/11/20 18:49 18:51 19:50 MCV MCH MCHC RDW Plt Count MPV Immature Gran % (Auto) Neut % (Auto) Lymph % (Auto) Kings % (Auto) Eos % (Auto) Baso % (Auto) Lymph # (Auto) Kings # (Auto) Eos # (Auto) Baso # (Auto) Abs Immat Gran (auto) Absolute Neuts (auto) Absolute Nucleated RBC Nucleated RBC % (auto) Neutrophils % (Manual) Band Neutrophils % Lymphocytes % (Manual) Monocytes % (Manual) Eosinophils % (Manual) Metamyelocytes % Myelocytes % Abs Neuts (Manual) Lymphocytes # (Manual) Monocytes # (Manual) Eosinophils # (Manual) Metamyelocytes # Myelocytes # Platelet Estimate Plt Morphology Comment RBC Morphology PT INR VBG pH VBG pCO2 VBG pO2 VBG HCO3 VBG O2 Saturation VBG Base Excess Anion Gap Estim Creat Clear Calc Estimated GFR Random Glucose Lactic Acid 9.4 H* Calcium Magnesium Total Bilirubin Direct Bilirubin AST ALT Alkaline Phosphatase Troponin I High Sens Total Protein Albumin Lipase Urine Color STRAW Urine Appearance CLEAR Urine pH 7.0 Ur Specific [place] 1.015 Urine Protein 1+ H Urine Glucose (UA) 250 H Urine Ketones NEG Urine Blood 2+ H Urine Nitrite NEG Ur Leukocyte Esterase NEG Urine RBC 15-29 H Urine WBC 1-4 Ur Squamous Epith Cells 1+ Urine Bacteria NONE Urine Test Salicylates Urine Opiates Screen Acetaminophen Ur Barbiturates Screen Ur Phencyclidine Scrn Ur Amphetamines Screen U Benzodiazepines Scrn Urine Cocaine Screen U Marijuana (THC) Screen Ethyl Alcohol COVID-19 (JESUS) Negative COVID-19 Clin Com See Note 06/11/20 06/11/20 06/11/20 19:50 19:50 20:01 MCV MCH MCHC RDW Plt Count MPV Immature Gran % (Auto) Neut % (Auto) Lymph % (Auto) Kings % (Auto) Eos % (Auto) Baso % (Auto) Lymph # (Auto) Kings # (Auto) Eos # (Auto) Baso # (Auto) Abs Immat Gran (auto) Absolute Neuts (auto) Absolute Nucleated RBC Nucleated RBC % (auto) Neutrophils % (Manual) Band Neutrophils % Lymphocytes % (Manual) Monocytes % (Manual) Eosinophils % (Manual) Metamyelocytes % Myelocytes % Abs Neuts (Manual) Lymphocytes # (Manual) Monocytes # (Manual) Eosinophils # (Manual) Metamyelocytes # Myelocytes # Platelet Estimate Plt Morphology Comment RBC Morphology PT INR VBG pH 7.32 VBG pCO2 36 VBG pO2 130 VBG HCO3 19 L VBG O2 Saturation 98.0 VBG Base Excess -6.2 Anion Gap Estim Creat Clear Calc Estimated GFR Random Glucose Lactic Acid Calcium Magnesium Total Bilirubin Direct Bilirubin AST ALT Alkaline Phosphatase Troponin I High Sens Total Protein Albumin Lipase Urine Color Urine Appearance Urine pH Ur Specific [place] Urine Protein Urine Glucose (UA) Urine Ketones Urine Blood Urine Nitrite Ur Leukocyte Esterase Urine RBC Urine WBC Ur Squamous Epith Cells Urine Bacteria Urine Test NEGATIVE Salicylates Urine Opiates Screen Not Detected Acetaminophen Ur Barbiturates Screen Not Detected Ur Phencyclidine Scrn Not Detected Ur Amphetamines Screen Not Detected U Benzodiazepines Scrn Not Detected Urine Cocaine Screen POSITIVE H U Marijuana (THC) Screen POSITIVE H Ethyl Alcohol COVID-19 (JESUS) COVID-19 Clin Com Imaging Radiologist's Impressions: Impressions Chest CT 06/11/20 18:29 IMPRESSION: 1. No acute abnormality of chest. 2. Endotracheal tube catheter about 2 cm both palomo. 3. Central port catheter tip in superior vena cava. Head CT 06/11/20 18:29 IMPRESSION: Imaging findings compatible with severe global cerebral/cerebellar anoxic injury. There is curran white matter differentiation loss throughout the entire supratentorial and infratentorial brain. Cerebral edema results in diffuse cerebral sulcal effacement, partial effacement of the basilar cisterns, and psuedo-subarachnoid hemorrhage in the setting of diffuse cerebral edema. Findings discussed with Dr. Cason at 8:10 PM on 06/11/2020. Chest X-Ray 06/11/20 18:35 IMPRESSION: ET tube and right IJ line in good position. No acute intrathoracic disease. Assessment and Plan (1) Cardiac arrest: Status: Acute Plan: Neuro: Anoxic brain injury: CT scan with positive anoxic brain injury, as well as herniation. She was unresponsive for at least 15 minutes before CPR was Initially started. She is intubated with no sedation. Cardiac: Cardiac arrest: status post cardiac arrest likely from overdose. ROSC was achieved after 15 minutes of CPR and x1 of epi. She is positive for cocaine and marijuana on toxicology. EKG with ST depressions in the emergency room. Negative troponin. Due to head CT findings, the patient was not a candidate to be transferred to [facility]. She is no longer hypotensive, not requiring any pressors at this time. Elevated lactic: this is likely due to cardiac arrest. No evidence of infectious process/ severe sepsis Pulmonary: Acute respiratory failure: this is due to overdose. Renal: KAHLIL most likely related to hypoperfusion, nonoliguric. Continue IV fluid. Continue to check renal induces and urine output Diabetes insipidus: since arrival to the ICU patient has been having large amount of urine output. With brain herniation being cause of DI. Will give desmopressin IV Endo: No acute issues GI: Ischemic Hepatitis- related to cardiac ischemia. Will cont with cardiac plan. Cont to check LFTs ID: No acute issues Heme/Onc: No acute issues. Psych: No acute issues. Miscellaneous: no acute issues CODE: While in the ED code status assessed with patient and ED attending, Dr Cason, patient family but they wanted patient to continue to be full code. On arrival to ICU, I once again spoke with Kaitlin (mother), and explain the poor prognosis. She agrees to make patient DNR. DNR status change in chart Critical care time: X 90 minutes of critical care time (2) Anoxic brain injury: Status: Acute (3) Elevated lactic acid level: Status: Acute (4) KAHLIL (acute kidney injury): Status: Acute (5) Diabetes insipidus: (6) Cocaine use:
[2020-06-11 21:35] LABS: Glucose, Whole Blood 325 mg/dL (60-115)
[2020-06-11] MEDS: propofoL 1,000 MG/100 ML VIAL 12.96 MG IVCONT (22:00)
[2020-06-11] MEDS: LORazepam 2 MG/ML VIAL IVPUSH (22:00)
--- NOTE | 2020-06-11 22:43 | PC.NURSE ---
Addendum entered by Faye Sarmiento RN 06/12/20 05:02: JEFF on site. Family agreeable to organ donation, on the condition they are allowed to be present for extubation. Please contact family if any change in status/progression in transfer to organ bank. Original Note: Patient arrived to unit approx 2140, s/p cardiac arrest. ?Seizure activity upon arrival. 2mg IVP ativan given. Propofol started. Even prior to propofol infusion: Patient flaccid, no cough/gag reflex, no pain response. Pupils 2mm nonreactive. SVT 170's-190's. SBP 120's-150's. Overbreathes vent RR 28-34. ETCO2 20-22. UOP >2L in 1 hour. DDAVP IVP. Organ bank called. Referral # [id number], [employer]- [facility]. Family at bedside. Updated on plan of care/prognosis. Belongings (including jewelry removed from patient-1 ring, 1 bracelet, 1 earring, and 1 belly button ring) sent with mother.
[2020-06-11 23:01] LABS: ~Lactic Acid-LAB USE ONLY 6.2 mmol/L (0.5-2.0)
[2020-06-11] MEDS: fentaNYL citrate/NS 1,000 MCG/100 ML PLAST..BAG 5 MCG IVCONT (23:57)
[2020-06-11] MEDS: Heparin Sodium,Porcine 5,000 UNIT/ML VIAL 5000 UNIT SUBCUT (23:57)
[2020-06-11] MEDS: Chlorhexidine Gluc Oral Rinse 15 ML MOUTHWASH BUCCAL (23:57)
[2020-06-12] VITALS (38 sets, daily range): BP systolic 73–200; BP diastolic 47–111; PULSE 80–127; RESP 16–28; TEMP 36.2–37.4; O2SAT 92–100; BMI 19.6
--- NOTE | 2020-06-12 | ECG_ITS ---
Test Reason : REPEAT Blood Pressure : / mmHG Vent. Rate : 171 BPM Atrial Rate : 166 BPM P-R Int : 000 ms QRS Dur : 074 ms QT Int : 272 ms P-R-T Axes : 000 065 -72 degrees QTc Int : 458 ms AGE AND GENDER SPECIFIC ECG ANALYSIS Atrial fibrillation with rapid ventricular response with premature ventricular or aberrantly conducted complexes Diffuse ST depressions - consider ischemia Abnormal ECG When compared with ECG of 11-JUN-2020 18:24, HR is faster. Continues to have ischemic ECG changes. Referred By: Wen Cason Electronically Signed By:Levar Restrepo
[2020-06-12 00:28] LABS: Reflex Lactate? 2 Y
[2020-06-12 01:22] LABS: ~Lactic Acid-LAB USE ONLY 3.8 mmol/L (0.5-2.0)
[2020-06-12] MEDS: Calcium Gluconate/NaCl,Iso-Osm 2 GM/100 ML PLAST..BAG IV (02:45)
[2020-06-12 02:52] LABS: ABG Base Excess -0.4 mmol/L; ABG HCO3 20 mmol/L (22-26); ABG pCO2 24 mmHg (32-45); ABG pH 7.53 (7.35-7.45); ABG pO2 144 mmHg (83-108)
[2020-06-12 03:31] LABS: ABG Refer to POC result
[2020-06-12 05:41] LABS: MANUAL DIFF FLAG NO
[2020-06-12 05:49] LABS: Basophils Percent Auto 0.1 % (0-2); Hematocrit 35.7 % (37-47); Hemoglobin 12.1 g/dl (12.0-16.0); Imm Gran Abs Auto 0.05 X10*3/uL (0.00-0.03); Imm Gran Pct Auto 0.3 % (0.0-0.4); Lymphocytes Absolute Auto 0.9 X10*3/uL (1.2-4.9); Lymphocytes Percent Auto 5.9 % (20-40); Mean Corpuscular HGB Conc 33.9 g/dl (31.0-35.0); Mean Corpuscular Hemoglobin 31.2 pg (27.0-33.0); Mean Platelet Volume 9.4 fL (9.4-12.3); Monocytes Absolute Auto 0.5 X10*3/uL (0.1-1.2); Monocytes Percent Auto 3.7 % (2-11); Neutrophils Absolute Auto 13.3 X10*3/uL (2.0-8.3); Platelet Count 239 X10*3/uL (160-400); Red Blood Count 3.88 X10*6/uL (4.20-5.50); Red Cell Distribution Width 13.1 % (11.0-16.0); White Blood Count 14.8 X10*3/uL (4.8-10.8)
[2020-06-12 05:51] LABS: ABG Base Excess 1.5 mmol/L; ABG HCO3 22 mmol/L (22-26); ABG pCO2 26 mmHg (32-45); ABG pCO2 TC 26 mmHg (32-45); ABG pH 7.53 (7.35-7.45); ABG pH TC 7.54 (7.35-7.45); ABG pO2 130 mmHg (83-108); ABG pO2 TC 127 (83-108)
[2020-06-12 05:52] LABS: ABG Refer to POC result
[2020-06-12 05:57] LABS: INTERNATIONAL NORM RATIO 1.1 (0.9-1.1); Prothrombin Time 12.6 SEC (10.8-13.0)
[2020-06-12 06:05] LABS: Phosphorus 1.9 mg/dL (2.7-4.5)
[2020-06-12 06:09] LABS: Alanine Aminotransferase 63 U/L (0-31); Albumin Level 3.4 g/dL (3.5-5.0); Alkaline Phosphatase 75 U/L (39-117); Anion Gap 14 (12-20); Aspartate Amino Transferase 98 U/L (5-31); Bilirubin Total 0.5 mg/dL (0.0-1.0); Blood Urea Nitrogen 26 mg/dL (9-16); Calcium 8.6 mg/dL (8.4-10.2); Carbon Dioxide 23 mmol/L (22-29); Chloride 109 mmol/L (96-108); Creatinine Clr Calc Pharmacy 77.8; Estimated Glomerular Filt Rate > 60; Glucose Random 140 mg/dL (60-115); Magnesium 2.4 mg/dL (1.6-2.6); Potassium 3.7 mmol/L (3.3-5.1); Sodium 142 mmol/L (135-145); Total Protein 5.7 g/dL (6.5-8.0)
[2020-06-12] MEDS: Pantoprazole Sodium 40 MG/10 ML VIAL IVPUSH (06:47)
--- NOTE | 2020-06-12 09:40 | MHC.CM.PN ---
pt is in icu, intubate on ventilator. dc plan deferred to a future time. cm to cont. to follow.
--- NOTE | 2020-06-12 10:29 | MHC.CLN ---
RE: CONSULT PT IS NOW DIRECTOR OF EMPLOYEE DEVELOPMENT AND AWAITING ORGAN DONATION NUTRITION ASSESSMENT DEFERRED
--- NOTE | 2020-06-12 10:30 | W.PM.CCHP ---
Procedures Arterial Line Arterial Line Comments: Right femoral arterial line placed for blood pressure monitoring for expected organ donation under ultrasound guidance and usual sterile conditions with no immediate complications.
[2020-06-12] MEDS: vancomycin HCL 750 MG in 0.9 % Sodium Chloride 250 ML 270 MG IV ×3 (11:23→23:26)
[2020-06-12] MEDS: Piperacillin Sodium/Tazobactam 3.375 GM in 0.9 % Sodium Chloride 50 ML IV ×3 (11:23→23:36)
[2020-06-12 12:14] LABS: ABG Base Excess 0.3 mmol/L; ABG HCO3 24 mmol/L (22-26); ABG pCO2 35 mmHg (32-45); ABG pH 7.43 (7.35-7.45); ABG pO2 115 mmHg (83-108)
[2020-06-12] MEDS: Chlorhexidine Gluc Oral Rinse 15 ML MOUTHWASH BUCCAL ×3 (13:41→23:36)
[2020-06-12] MEDS: Heparin Sodium,Porcine 5,000 UNIT/ML VIAL 5000 UNIT SUBCUT ×2 (13:41→23:36)
[2020-06-12] MEDS: Esmolol HCl/NaCl Iso 2,500 MG/250 ML IV.SOLN 7.8 MG IVCONT (14:00)
[2020-06-12] MEDS: fentaNYL citrate/NS 1,000 MCG/100 ML PLAST..BAG 5 MCG IVCONT (14:20)
--- NOTE | 2020-06-12 14:48 | PM.CCPN ---
Subjective Subjective Date of Service: 06/12/20 Interval History: 35-year-old lady with underlying history of substance abuse admitted on 06/11/2020 after an out of hospital cardiac arrest with unclear down time (minimum of 15 minutes) with return of spontaneous circulation achieved after approximately 15 minutes of CPR, intubated on the field. Upon arrival to emergency room central line was placed for vasopressor support. Patient initial CT head was significant for significant anoxic injury with uncal herniation. 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 She was treated with desmopressin. Patient's mother was notified of essentially no chances of recovery and decided to proceed with organ donation. Patient's family requested no brain examination. No events overnight. Physical Exam Vital Signs: Vital Signs: Last Vital Signs Temp 98.2 F 06/12/20 14:00 Pulse 110 H 06/12/20 14:23 Resp 16 06/12/20 14:00 BP 144/99 H 06/12/20 14:23 Pulse Ox 98 06/12/20 14:00 Body Mass Index 19.6 Const: General: patient obtunded Orientation/consciousness: patient obtunded Eyes: Sclerae: sclerae normal Pupils: Dilated pupils and Fixed pupils Neck: Neck: Yes no lymphadenopathy, Yes trachea midline and Yes supple Resp: Auscultation: clear to auscultation bilaterally Cardio: Rate: tachycardic Rhythm: regular rhythm Heart sounds: no gallops, no murmurs and no rubs GI: Palpation (GI): Soft to palpation and Other GI palpation findings present ( Nontender) Auscultation: normal bowel sounds Neuro: General: patient obtunded Extrem: General: Yes no pedal edema, No clubbing, No cyanosis and Yes other (Multiple track nguyen on bilateral upper extremities) Objective Data Labs CBC & Chem 7: 06/12/20 05:15 06/12/20 05:15 Labs: Laboratory Results - last 24 hr 06/11/20 06/11/20 06/11/20 18:22 18:47 18:47 WBC 10.3 RBC 2.99 L Hgb 9.5 L Hct 30.3 L MCV 101.3 H MCH 31.8 MCHC 31.4 RDW 13.1 Plt Count 240 MPV 9.8 Immature Gran % (Auto) Cancelled Neut % (Auto) Cancelled Lymph % (Auto) Cancelled [place] % (Auto) Cancelled Eos % (Auto) Cancelled Baso % (Auto) Cancelled Lymph # (Auto) Cancelled [place] # (Auto) Cancelled Eos # (Auto) Cancelled Baso # (Auto) Cancelled Abs Immat Gran (auto) Cancelled Absolute Neuts (auto) Cancelled Absolute Nucleated RBC 0.000 Nucleated RBC % (auto) 0.0 Neutrophils % (Manual) 60 Band Neutrophils % 4 Lymphocytes % (Manual) 28 Monocytes % (Manual) 4 Eosinophils % (Manual) 2 Metamyelocytes % 1 Myelocytes % 1 Abs Neuts (Manual) 6.6 Lymphocytes # (Manual) 2.9 Monocytes # (Manual) 0.4 Eosinophils # (Manual) 0.2 Metamyelocytes # 0.1 Myelocytes # 0.1 Platelet Estimate NORMAL Plt Morphology Comment NORMAL RBC Morphology NORMAL PT 13.2 H INR 1.1 O2 Saturation ABG pH at Pt Temp ABG pH (Temp Correct) ABG pCO2 at Pt Temp ABG pCO2 (Temp Corrct ABG pO2 at Pt Temp ABG pO2 (Temp Correct ABG HCO3 ABG Base Excess (Actual) VBG pH VBG pCO2 VBG pO2 VBG HCO3 VBG O2 Saturation VBG Base Excess Sodium Potassium Chloride Carbon Dioxide Anion Gap BUN Creatinine Estim Creat Clear Calc Estimated GFR POC Glucose 325 H Random Glucose Lactic Acid Lactic Acid Fup @ 2Hr Lactic Acid Fup @ 4Hr Calcium Phosphorus Magnesium Total Bilirubin Direct Bilirubin AST ALT Alkaline Phosphatase Troponin I High Sens Total Protein Albumin Lipase Urine Color Urine Appearance Urine pH Ur Specific [place] Urine Protein Urine Glucose (UA) Urine Ketones Urine Blood Urine Nitrite Ur Leukocyte Esterase Urine RBC Urine WBC Ur Squamous Epith Cells Urine Bacteria Urine Test Salicylates Urine Opiates Screen Acetaminophen Ur Barbiturates Screen Ur Phencyclidine Scrn Ur Amphetamines Screen U Benzodiazepines Scrn Urine Cocaine Screen U Marijuana (THC) Screen Ethyl Alcohol COVID-19 ([facility]ESUS) COVID-19 Clin Com Blood Type Antibody Screen 06/11/20 06/11/20 06/11/20 18:47 18:47 18:48 WBC RBC Hgb Hct MCV MCH MCHC RDW Plt Count MPV Immature Gran % (Auto) Neut % (Auto) Lymph % (Auto) [place] % (Auto) Eos % (Auto) Baso % (Auto) Lymph # (Auto) [place] # (Auto) Eos # (Auto) Baso # (Auto) Abs Immat Gran (auto) Absolute Neuts (auto) Absolute Nucleated RBC Nucleated RBC % (auto) Neutrophils % (Manual) Band Neutrophils % Lymphocytes % (Manual) Monocytes % (Manual) Eosinophils % (Manual) Metamyelocytes % Myelocytes % Abs Neuts (Manual) Lymphocytes # (Manual) Monocytes # (Manual) Eosinophils # (Manual) Metamyelocytes # Myelocytes # Platelet Estimate Plt Morphology Comment RBC Morphology PT INR O2 Saturation ABG pH at Pt Temp ABG pH (Temp Correct) ABG pCO2 at Pt Temp ABG pCO2 (Temp Corrct ABG pO2 at Pt Temp ABG pO2 (Temp Correct ABG HCO3 ABG Base Excess (Actual) VBG pH VBG pCO2 VBG pO2 VBG HCO3 VBG O2 Saturation VBG Base Excess Sodium 142 Potassium 4.0 Chloride 111 H Carbon Dioxide 17 L Anion Gap 18 BUN 17 H Creatinine 1.10 Estim Creat Clear Calc TNP Estimated GFR 56 POC Glucose Random Glucose 271 H Lactic Acid Lactic Acid Fup @ 2Hr Lactic Acid Fup @ 4Hr Calcium 6.9 L Phosphorus Magnesium 2.0 Total Bilirubin 0.5 Direct Bilirubin 0.2 AST 65 H ALT 40 H Alkaline Phosphatase 61 Troponin I High Sens 4.7 Total Protein 4.3 L Albumin 2.6 L Lipase 37 Urine Color Urine Appearance Urine pH Ur Specific [place] Urine Protein Urine Glucose (UA) Urine Ketones Urine Blood Urine Nitrite Ur Leukocyte Esterase Urine RBC Urine WBC Ur Squamous Epith Cells Urine Bacteria Urine Test Salicylates < 5.0 L Urine Opiates Screen Acetaminophen < 1 Ur Barbiturates Screen Ur Phencyclidine Scrn Ur Amphetamines Screen U Benzodiazepines Scrn Urine Cocaine Screen U Marijuana (THC) Screen Ethyl Alcohol COVID-19 ([facility]ESUS) COVID-19 Clin Com Blood Type Antibody Screen 06/11/20 06/11/20 06/11/20 18:48 18:49 18:51 WBC RBC Hgb Hct MCV MCH MCHC RDW Plt Count MPV Immature Gran % (Auto) Neut % (Auto) Lymph % (Auto) [place] % (Auto) Eos % (Auto) Baso % (Auto) Lymph # (Auto) [place] # (Auto) Eos # (Auto) Baso # (Auto) Abs Immat Gran (auto) Absolute Neuts (auto) Absolute Nucleated RBC Nucleated RBC % (auto) Neutrophils % (Manual) Band Neutrophils % Lymphocytes % (Manual) Monocytes % (Manual) Eosinophils % (Manual) Metamyelocytes % Myelocytes % Abs Neuts (Manual) Lymphocytes # (Manual) Monocytes # (Manual) Eosinophils # (Manual) Metamyelocytes # Myelocytes # Platelet Estimate Plt Morphology Comment RBC Morphology PT INR O2 Saturation ABG pH at Pt Temp ABG pH (Temp Correct) ABG pCO2 at Pt Temp ABG pCO2 (Temp Corrct ABG pO2 at Pt Temp ABG pO2 (Temp Correct ABG HCO3 ABG Base Excess (Actual) VBG pH VBG pCO2 VBG pO2 VBG HCO3 VBG O2 Saturation VBG Base Excess Sodium Potassium Chloride Carbon Dioxide Anion Gap BUN Creatinine Estim Creat Clear Calc Estimated GFR POC Glucose Random Glucose Lactic Acid 9.4 H* Lactic Acid Fup @ 2Hr Lactic Acid Fup @ 4Hr Calcium Phosphorus Magnesium Total Bilirubin Direct Bilirubin AST ALT Alkaline Phosphatase Troponin I High Sens Total Protein Albumin Lipase Urine Color Urine Appearance Urine pH Ur Specific [place] Urine Protein Urine Glucose (UA) Urine Ketones Urine Blood Urine Nitrite Ur Leukocyte Esterase Urine RBC Urine WBC Ur Squamous Epith Cells Urine Bacteria Urine Test Salicylates Urine Opiates Screen Acetaminophen Ur Barbiturates Screen Ur Phencyclidine Scrn Ur Amphetamines Screen U Benzodiazepines Scrn Urine Cocaine Screen U Marijuana (THC) Screen Ethyl Alcohol < 10 COVID-19 (JESUS) Negative COVID-19 Clin Com See Note Blood Type Antibody Screen 06/11/20 06/11/20 06/11/20 19:50 19:50 19:50 WBC RBC Hgb Hct MCV MCH MCHC RDW Plt Count MPV Immature Gran % (Auto) Neut % (Auto) Lymph % (Auto) [place] % (Auto) Eos % (Auto) Baso % (Auto) Lymph # (Auto) [place] # (Auto) Eos # (Auto) Baso # (Auto) Abs Immat Gran (auto) Absolute Neuts (auto) Absolute Nucleated RBC Nucleated RBC % (auto) Neutrophils % (Manual) Band Neutrophils % Lymphocytes % (Manual) Monocytes % (Manual) Eosinophils % (Manual) Metamyelocytes % Myelocytes % Abs Neuts (Manual) Lymphocytes # (Manual) Monocytes # (Manual) Eosinophils # (Manual) Metamyelocytes # Myelocytes # Platelet Estimate Plt Morphology Comment RBC Morphology PT INR O2 Saturation ABG pH at Pt Temp ABG pH (Temp Correct) ABG pCO2 at Pt Temp ABG pCO2 (Temp Corrct ABG pO2 at Pt Temp ABG pO2 (Temp Correct ABG HCO3 ABG Base Excess (Actual) VBG pH VBG pCO2 VBG pO2 VBG HCO3 VBG O2 Saturation VBG Base Excess Sodium Potassium Chloride Carbon Dioxide Anion Gap BUN Creatinine Estim Creat Clear Calc Estimated GFR POC Glucose Random Glucose Lactic Acid Lactic Acid Fup @ 2Hr Lactic Acid Fup @ 4Hr Calcium Phosphorus Magnesium Total Bilirubin Direct Bilirubin AST ALT Alkaline Phosphatase Troponin I High Sens Total Protein Albumin Lipase Urine Color STRAW Urine Appearance CLEAR Urine pH 7.0 Ur Specific [place] 1.015 Urine Protein 1+ H Urine Glucose (UA) 250 H Urine Ketones NEG Urine Blood 2+ H Urine Nitrite NEG Ur Leukocyte Esterase NEG Urine RBC 15-29 H Urine WBC 1-4 Ur Squamous Epith Cells 1+ Urine Bacteria NONE Urine Test NEGATIVE Salicylates Urine Opiates Screen Not Detected Acetaminophen Ur Barbiturates Screen Not Detected Ur Phencyclidine Scrn Not Detected Ur Amphetamines Screen Not Detected U Benzodiazepines Scrn Not Detected Urine Cocaine Screen POSITIVE H U Marijuana (THC) Screen POSITIVE H Ethyl Alcohol COVID-19 (JESUS) COVID-19 Clin Com Blood Type Antibody Screen 06/11/20 06/11/20 06/12/20 20:01 22:11 00:58 WBC RBC Hgb Hct MCV MCH MCHC RDW Plt Count MPV Immature Gran % (Auto) Neut % (Auto) Lymph % (Auto) [place] % (Auto) Eos % (Auto) Baso % (Auto) Lymph # (Auto) [place] # (Auto) Eos # (Auto) Baso # (Auto) Abs Immat Gran (auto) Absolute Neuts (auto) Absolute Nucleated RBC Nucleated RBC % (auto) Neutrophils % (Manual) Band Neutrophils % Lymphocytes % (Manual) Monocytes % (Manual) Eosinophils % (Manual) Metamyelocytes % Myelocytes % Abs Neuts (Manual) Lymphocytes # (Manual) Monocytes # (Manual) Eosinophils # (Manual) Metamyelocytes # Myelocytes # Platelet Estimate Plt Morphology Comment RBC Morphology PT INR O2 Saturation ABG pH at Pt Temp ABG pH (Temp Correct) ABG pCO2 at Pt Temp ABG pCO2 (Temp Corrct ABG pO2 at Pt Temp ABG pO2 (Temp Correct ABG HCO3 ABG Base Excess (Actual) VBG pH 7.32 VBG pCO2 36 VBG pO2 130 VBG HCO3 19 L VBG O2 Saturation 98.0 VBG Base Excess -6.2 Sodium Potassium Chloride Carbon Dioxide Anion Gap BUN Creatinine Estim Creat Clear Calc Estimated GFR POC Glucose Random Glucose Lactic Acid Lactic Acid Fup @ 2Hr 6.2 H* Lactic Acid Fup @ 4Hr 3.8 H* Calcium Phosphorus Magnesium Total Bilirubin Direct Bilirubin AST ALT Alkaline Phosphatase Troponin I High Sens Total Protein Albumin Lipase Urine Color Urine Appearance Urine pH Ur Specific [place] Urine Protein Urine Glucose (UA) Urine Ketones Urine Blood Urine Nitrite Ur Leukocyte Esterase Urine RBC Urine WBC Ur Squamous Epith Cells Urine Bacteria Urine Test Salicylates Urine Opiates Screen Acetaminophen Ur Barbiturates Screen Ur Phencyclidine Scrn Ur Amphetamines Screen U Benzodiazepines Scrn Urine Cocaine Screen U Marijuana (THC) Screen Ethyl Alcohol COVID-19 (JESUS) COVID-19 Clin Com Blood Type Antibody Screen 06/12/20 06/12/20 06/12/20 02:44 05:15 05:15 WBC 14.8 H RBC 3.88 L D Hgb 12.1 D Hct 35.7 L MCV 92.0 D MCH 31.2 MCHC 33.9 RDW 13.1 Plt Count 239 MPV 9.4 Immature Gran % (Auto) 0.3 Neut % (Auto) 90.0 H Lymph % (Auto) 5.9 L [place] % (Auto) 3.7 Eos % (Auto) 0.0 Baso % (Auto) 0.1 Lymph # (Auto) 0.9 L [place] # (Auto) 0.5 Eos # (Auto) 0.0 Baso # (Auto) 0.0 Abs Immat Gran (auto) 0.05 H Absolute Neuts (auto) 13.3 H Absolute Nucleated RBC 0.000 Nucleated RBC % (auto) 0.0 Neutrophils % (Manual) Band Neutrophils % Lymphocytes % (Manual) Monocytes % (Manual) Eosinophils % (Manual) Metamyelocytes % Myelocytes % Abs Neuts (Manual) Lymphocytes # (Manual) Monocytes # (Manual) Eosinophils # (Manual) Metamyelocytes # Myelocytes # Platelet Estimate Plt Morphology Comment RBC Morphology PT INR O2 Saturation 100.0 ABG pH at Pt Temp 7.53 H ABG pH (Temp Correct) ABG pCO2 at Pt Temp 24 L ABG pCO2 (Temp Corrct ABG pO2 at Pt Temp 144 H ABG pO2 (Temp Correct ABG HCO3 20 L ABG Base Excess (Actual) -0.4 VBG pH VBG pCO2 VBG pO2 VBG HCO3 VBG O2 Saturation VBG Base Excess Sodium 142 Potassium 3.7 Chloride 109 H Carbon Dioxide 23 Anion Gap 14 BUN 26 H D Creatinine 0.82 Estim Creat Clear Calc 77.8 Estimated GFR > 60 POC Glucose Random Glucose 140 H D Lactic Acid Lactic Acid Fup @ 2Hr Lactic Acid Fup @ 4Hr Calcium 8.6 D Phosphorus Magnesium 2.4 Total Bilirubin 0.5 Direct Bilirubin AST 98 H ALT 63 H Alkaline Phosphatase 75 D Troponin I High Sens Total Protein 5.7 L D Albumin 3.4 L D Lipase Urine Color Urine Appearance Urine pH Ur Specific [place] Urine Protein Urine Glucose (UA) Urine Ketones Urine Blood Urine Nitrite Ur Leukocyte Esterase Urine RBC Urine WBC Ur Squamous Epith Cells Urine Bacteria Urine Test Salicylates Urine Opiates Screen Acetaminophen Ur Barbiturates Screen Ur Phencyclidine Scrn Ur Amphetamines Screen U Benzodiazepines Scrn Urine Cocaine Screen U Marijuana (THC) Screen Ethyl Alcohol COVID-19 ([facility]ESUS) COVID-19 Clin Com Blood Type Antibody Screen 06/12/20 06/12/20 06/12/20 05:15 05:15 05:19 WBC RBC Hgb Hct MCV MCH MCHC RDW Plt Count MPV Immature Gran % (Auto) Neut % (Auto) Lymph % (Auto) [place] % (Auto) Eos % (Auto) Baso % (Auto) Lymph # (Auto) [place] # (Auto) Eos # (Auto) Baso # (Auto) Abs Immat Gran (auto) Absolute Neuts (auto) Absolute Nucleated RBC Nucleated RBC % (auto) Neutrophils % (Manual) Band Neutrophils % Lymphocytes % (Manual) Monocytes % (Manual) Eosinophils % (Manual) Metamyelocytes % Myelocytes % Abs Neuts (Manual) Lymphocytes # (Manual) Monocytes # (Manual) Eosinophils # (Manual) Metamyelocytes # Myelocytes # Platelet Estimate Plt Morphology Comment RBC Morphology PT 12.6 INR 1.1 O2 Saturation ABG pH at Pt Temp ABG pH (Temp Correct) ABG pCO2 at Pt Temp ABG pCO2 (Temp Corrct ABG pO2 at Pt Temp ABG pO2 (Temp Correct ABG HCO3 ABG Base Excess (Actual) VBG pH VBG pCO2 VBG pO2 VBG HCO3 VBG O2 Saturation VBG Base Excess Sodium Potassium Chloride Carbon Dioxide Anion Gap BUN Creatinine Estim Creat Clear Calc Estimated GFR POC Glucose Random Glucose Lactic Acid Lactic Acid Fup @ 2Hr Lactic Acid Fup @ 4Hr Calcium Phosphorus 1.9 L Magnesium Total Bilirubin Direct Bilirubin AST ALT Alkaline Phosphatase Troponin I High Sens Total Protein Albumin Lipase Urine Color Urine Appearance Urine pH Ur Specific [place] Urine Protein Urine Glucose (UA) Urine Ketones Urine Blood Urine Nitrite Ur Leukocyte Esterase Urine RBC Urine WBC Ur Squamous Epith Cells Urine Bacteria Urine Test Salicylates Urine Opiates Screen Acetaminophen Ur Barbiturates Screen Ur Phencyclidine Scrn Ur Amphetamines Screen U Benzodiazepines Scrn Urine Cocaine Screen U Marijuana (THC) Screen Ethyl Alcohol COVID-19 (JESUS) COVID-19 Clin Com Blood Type A Positive Antibody Screen NEGATIVE 06/12/20 06/12/20 05:45 12:08 WBC RBC Hgb Hct MCV MCH MCHC RDW Plt Count MPV Immature Gran % (Auto) Neut % (Auto) Lymph % (Auto) [place] % (Auto) Eos % (Auto) Baso % (Auto) Lymph # (Auto) [place] # (Auto) Eos # (Auto) Baso # (Auto) Abs Immat Gran (auto) Absolute Neuts (auto) Absolute Nucleated RBC Nucleated RBC % (auto) Neutrophils % (Manual) Band Neutrophils % Lymphocytes % (Manual) Monocytes % (Manual) Eosinophils % (Manual) Metamyelocytes % Myelocytes % Abs Neuts (Manual) Lymphocytes # (Manual) Monocytes # (Manual) Eosinophils # (Manual) Metamyelocytes # Myelocytes # Platelet Estimate Plt Morphology Comment RBC Morphology PT INR O2 Saturation 99.0 99.0 ABG pH at Pt Temp 7.53 H 7.43 ABG pH (Temp Correct) 7.54 H ABG pCO2 at Pt Temp 26 L 35 ABG pCO2 (Temp Corrct 26 L ABG pO2 at Pt Temp 130 H 115 H ABG pO2 (Temp Correct 127 H ABG HCO3 22 24 ABG Base Excess (Actual) 1.5 0.3 VBG pH VBG pCO2 VBG pO2 VBG HCO3 VBG O2 Saturation VBG Base Excess Sodium Potassium Chloride Carbon Dioxide Anion Gap BUN Creatinine Estim Creat Clear Calc Estimated GFR POC Glucose Random Glucose Lactic Acid Lactic Acid Fup @ 2Hr Lactic Acid Fup @ 4Hr Calcium Phosphorus Magnesium Total Bilirubin Direct Bilirubin AST ALT Alkaline Phosphatase Troponin I High Sens Total Protein Albumin Lipase Urine Color Urine Appearance Urine pH Ur Specific [place] Urine Protein Urine Glucose (UA) Urine Ketones Urine Blood Urine Nitrite Ur Leukocyte Esterase Urine RBC Urine WBC Ur Squamous Epith Cells Urine Bacteria Urine Test Salicylates Urine Opiates Screen Acetaminophen Ur Barbiturates Screen Ur Phencyclidine Scrn Ur Amphetamines Screen U Benzodiazepines Scrn Urine Cocaine Screen U Marijuana (THC) Screen Ethyl Alcohol COVID-19 (JESUS) COVID-19 Clin Com Blood Type Antibody Screen Microbiology Microbiology Results: Microbiology 06/11/20 21:13 Blood - Venous Blood Culture - Preliminary Progress Note: A&P Assessment and plan (1) Anoxic brain injury: Status: Acute Assessment and Plan: Assessment: 35-year-old with underlying substance abuse admitted after an out of hospital cardiac arrest with severe anoxic injury and uncal herniation on admission CT scan of the head, being evaluated for organ donation. Plan: Neuro: Severe anoxic encephalopathy after an out of hospital cardiac arrest likely secondary to underlying substance abuse with resultant on-call herniation and brain edema. Patient's family requested no brain examination. Cardiac: Status post out of hospital cardiac arrest likely secondary to substance abuse. Arterial line placed for hemodynamic monitoring. Esmolol drip for hypertensive emergency associated with brain edema. Pulmonary: Acute respiratory failure, intubated during the cardiopulmonary resuscitation. Continue ventilatory support during organ donation evaluation. 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 Continue to monitor electrolytes and urine output. Endo: No acute issues. GI: No acute issues. ID: Gram-negative bacteria on initial blood culture Gram stain. Empirically covered with broad-spectrum antibiotics. Heme/Onc: No acute issues. Psych: No acute issues. Miscellaneous: No acute issues. Prophylaxis: Heparin, ppi Diet: Nothing by mouth Critical care time spent: 60 minutes excluding separately billable procedures. (2) Cardiac arrest: Status: Acute (3) Bacteremia: Status: Acute (4) Substance abuse: Status: Acute (5) Brain edema: Status: Acute (6) Hypertensive emergency: Status: Acute (7) Diabetes insipidus: Status: Acute Critical Care Time Critical Care Time (minutes): 60
[2020-06-12 15:00] LABS: Alanine Aminotransferase 55 U/L (0-31); Albumin Level 3.4 g/dL (3.5-5.0); Alkaline Phosphatase 69 U/L (39-117); Aspartate Amino Transferase 78 U/L (5-31); Bilirubin Direct 0.2 mg/dL (0.0-0.5); Bilirubin Total 0.5 mg/dL (0.0-1.0); Total Protein 5.6 g/dL (6.5-8.0)
[2020-06-12 15:06] LABS: Amylase 36 U/L (28-100); Lipase 11 U/L (8-78)
--- NOTE | 2020-06-12 16:17 | PC.NURSE ---
Assumed care at 0700. Patient unresponsive and flaccid. Bilateral pupils 5cm and nonreactive. No cough and gag. MD aware. Remains on Fentanyl. ETT 7.0 and 25 at the lip. Remains on AC settings: rate 16, tidal vol 400, peep 5, fio2 30% with o2 sats trending in the mid to high 90s. LS clear. BSx4. No BM. [place] output around 30 ml/hr of yellow urine. Track nguyen, scattered bruises and scabs to bilateral upper and lower extremities. ZINA at bedside for organ donation evaluation and consult with patient's family. Proceeding with organ donation. Tentative plan for extubation and retrieval tomorrow around 20:00. Patient's family requesting to be present for extubation. ZINA and aware. Right femoral arterial line placed. Around 12:00 arterial BP started trending up as high as 198/116 and HR up to 120s. MD made aware. Order for Esmolol drip started with target BP less than 180 and target HR less than 130. BP improved to 112/68 and HR to 109. Critial lab result for Blood cultures 1 of 2 positive for gram negative rods in gram stain. Reported to ZINA and . Repeat blood cultures obtained. Patient started on IV Vanco and Zosyn. After antibiotic administration, slight redness noted to patient's face and chest only. made aware. No new orders. Bedside echo ordered and completed.
[2020-06-12 17:45] LABS: Partial Thromboplastin Time 27.1 SEC (24.1-38.0)
--- NOTE | 2020-06-12 18:00 | CA_ITS ---
Transthoracic Echocardiogram Patient (Last, First, Middle): Stephenie Thao, Gender: Female Date of : 1985 Age: 35 Procedure Date: 06/12/2020 Procedure Type: Transthoracic Echocardiogram Location: ICU Height: 162.56 cm Weight: 51.71 kg BSA: 1.54 m2 Heart Rate: bpm BP: 145 / 97 mmHg Referring MD: Paddy Hernandez MD Security Systems Technician: Levar Restrepo MD Symptoms: organ donation Study Quality: Fair ECG Rhythm: Sinus Conclusions: - Moderately increased left ventricular cavity size. - The left ventricular systolic function is moderate to severely decreased. - Diastolic function is indeterminate on the basis of available data. - Moderate global hypokinesis with regional variation. Findings Left Ventricle Moderately increased left ventricular cavity size. There is normal left ventricular wall thickness. The left ventricular systolic function is moderate to severely decreased. The visually estimated ejection fraction is between 25-30%. Diastolic function is indeterminate on the basis of available data. Right Ventricle Normal right ventricular cavity size and systolic function. Atria The left atrium is mildly dilated. Aortic Valve There is a normal trileaflet aortic valve. There is no aortic valve stenosis. There is no aortic valve regurgitation. Mitral Valve Normal mitral valve structure and function. There is trace mitral valve regurgitation. There is no mitral valve stenosis. Pulmonic Valve The pulmonic valve is likely normal. Tricuspid Valve Normal tricuspid valve structure and function. There is mild tricuspid valve regurgitation. Normal right atrial pressure. There is no evidence of pulmonary hypertension. Great Vessels All visible segments of the aorta are normal in size. The visualized portions of the pulmonary artery and branches are normal. Venous The inferior vena cava is normal in size and collapses greater than 50% with inspiration. Pericardium/Pleural There is no evidence of pericardial effusion. Measurements 2D Linear Measurements IVSd: 0.84 0.6-0.9/0.6-1.0 cm LVIDd: 5.42 3.9-5.3/4.2-5.9 cm LVIDd Index: 3.52 2.4-3.2/2.2-3.1 cm/m2 LVIDs: 4.31 2.0-3.6 cm LVPWd: 0.83 0.7-1.1 cm Ao Root: 2.90 2.1-3.5 cm LA Diam: 2.30 2.7-3.8/3.0-4.0 cm LAIDs Index: 1.49 1.5-2.3 cm/m2 LV Mass: 203.97 67-162/88-224 g LV Mass Index: 132.45 43-95/49-115 g/m2 LVOT Diam: 2.20 3.0+(-)1.3 cm 2D Systolic Function EF 4C: 31.40 >55% EF 2C: 28.30 >55% EF BiP: 26.50 >55% Mitral Valve MV Pk E: 0.47 MV PK A: 0.94 MV Decel Time: 99.00 E/A: 0.50 E'Lateral: 6.48 E'Medial: 5.42 E/E' Med: 8.70 E/E' Lat: 7.30 PHT: 29.00 MVA PHT: 7.59 Decel [place]: 4.77 Aortic Valve AoV Pk Yordy: 1.13 AoV Mn Yordy: 0.72 AoV VTI: 0.19 AoV Pk Grad: 5.00 Aov Mn Grad: 3.00 RABIA Cont.VTI: 3.23 LVOT LVOT Pk [place]ordy: 1.02 LVOT Mn Yordy: 0.69 LVOT VTI: 0.16 LVOT Pk Grad: 4.00 LVOT Mn Grad: 2.00 LVOT Diam: 2.20 LVOT Area: 3.80 Diastolic Function MV Pk E: 0.47 MV Pk A: 0.94 E/A: 0.50 E'Medial: 5.42 E/E' Med: 8.70 E' Laterial: 6.48 E/E' Lat: 7.30 Tricuspid Valve TR Pk Yordy: 1.97 TR Pk Grad: 16.00 RVSP: 22.00 Great Vessels Aorta Ao Root-2D: 2.90 2.0-3.7 cm Ao Asc: 2.60 2.1-3.4 cm Pulmonary Valve PV Pk Yordy: 1.06 Peak PV Grad: 4.00 Updated in Other Vendor System with Status of Final Levar Restrepo MD electronically signed on 06/12/2020 5:03:58 PM with status of Final
[2020-06-12 18:01] LABS: MANUAL DIFF FLAG NO
[2020-06-12 18:16] LABS: Basophils Percent Auto 0.1 % (0-2); Eosinophils Percent Auto 0.3 % (0-4); Hematocrit 34.4 % (37-47); Hemoglobin 11.3 g/dl (12.0-16.0); Imm Gran Abs Auto 0.06 X10*3/uL (0.00-0.03); Imm Gran Pct Auto 0.4 % (0.0-0.4); Lymphocytes Absolute Auto 2.5 X10*3/uL (1.2-4.9); Lymphocytes Percent Auto 16.1 % (20-40); Mean Corpuscular HGB Conc 32.8 g/dl (31.0-35.0); Mean Corpuscular Hemoglobin 30.8 pg (27.0-33.0); Mean Corpuscular Volume 93.7 fL (80-98); Mean Platelet Volume 9.5 fL (9.4-12.3); Monocytes Percent Auto 6.6 % (2-11); Neutrophils Percent Auto 76.5 % (45-73); Platelet Count 228 X10*3/uL (160-400); Red Blood Count 3.67 X10*6/uL (4.20-5.50); Red Cell Distribution Width 13.4 % (11.0-16.0); White Blood Count 15.7 X10*3/uL (4.8-10.8)
[2020-06-12 18:58] LABS: Alanine Aminotransferase 51 U/L (0-31); Albumin Level 3.2 g/dL (3.5-5.0); Alkaline Phosphatase 65 U/L (39-117); Anion Gap 9 (12-20); Aspartate Amino Transferase 67 U/L (5-31); Bilirubin Total 0.5 mg/dL (0.0-1.0); Blood Urea Nitrogen 24 mg/dL (9-16); Calcium 7.8 mg/dL (8.4-10.2); Carbon Dioxide 26 mmol/L (22-29); Chloride 113 mmol/L (96-108); Estimated Glomerular Filt Rate > 60; Glucose Random 76 mg/dL (60-115); Potassium 3.4 mmol/L (3.3-5.1); Sodium 145 mmol/L (135-145); Total Protein 5.4 g/dL (6.5-8.0)
[2020-06-12 20:05] LABS: Glucose, Whole Blood 79 mg/dL (60-115)
[2020-06-12] MEDS: SODIUM CHLORIDE 0.9% IVCONT (20:50)
[2020-06-12] MEDS: LEVOTHYROXINE SODIUM IVCONT (20:50)
[2020-06-12] MEDS: Insulin Regular, Human 100 UNIT/ML 3 ML VIAL 20 UNIT IVPUSH (20:56)
[2020-06-12] MEDS: Levothyroxine Sodium 100 MCG VIAL 20 MCG IVPUSH (20:57)
[2020-06-12] MEDS: Lactated Ringers 1,000 ML 999 ML IV (22:15)
[2020-06-12 22:38] LABS: Glucose Urine UA NEG (NEG); Leukocyte Esterase Urine NEG (NEG); Nitrite Urine NEG (NEG); Specific Gravity - Urine <= 1.005 (1.005-1.025); Urine Blood TRACE (NEG); Urine Ketones NEG (NEG); Urine Protein NEG (NEG-TRACE)
--- NOTE | 2020-06-12 22:38 | P.EN_ITS ---
Event Note Date of Service: 06/12/20 Event Note: land examiner contacted informed of patient status and organ do nation involvement. Spoke with Dr. Thelma Bolden, Case open. Case # [id number].
--- NOTE | 2020-06-12 22:38 | PM.EVENT ---
Event Note Date of Service: 06/12/20 Event Note: cloth examiner contacted informed of patient status and organ donation involvement. Spoke with Dr. Thelma Bolden, Case open. Case # [id number].
[2020-06-12 22:39] LABS: Appearance Urine CLEAR; Color Urine COLORLESS
[2020-06-12 22:50] LABS: Bacteria Urine TRACE /LPF; RBC Urine 0-2 /HPF (0); Squamous Epithelial Cell Urine TRACE /LPF; WBC Urine 0-2 /HPF (0-4)
[2020-06-12 22:50] LABS: Anion Gap 10 (12-20); Blood Urea Nitrogen 21 mg/dL (9-16); Calcium 7.8 mg/dL (8.4-10.2); Carbon Dioxide 25 mmol/L (22-29); Chloride 116 mmol/L (96-108); Creatinine Clr Calc Pharmacy 76.8; Estimated Glomerular Filt Rate > 60; Glucose Random 24 mg/dL (60-115); Potassium 2.7 mmol/L (3.3-5.1); Sodium 148 mmol/L (135-145)
[2020-06-12] MEDS: Dextrose 5 % 1,000 ML 100 ML IVCONT (23:01)
[2020-06-12] MEDS: Potassium Chloride/H20 40 MEQ/100 ML PIGGYBACK 100 MEQ IV (23:04)
[2020-06-12 23:37] LABS: Anion Gap 8 (12-20); Blood Urea Nitrogen 20 mg/dL (9-16); Calcium 7.6 mg/dL (8.4-10.2); Carbon Dioxide 25 mmol/L (22-29); Chloride 119 mmol/L (96-108); Creatinine Clr Calc Pharmacy 86.3; Estimated Glomerular Filt Rate > 60; Glucose Random 19 mg/dL (60-115); Potassium 2.9 mmol/L (3.3-5.1); Sodium 149 mmol/L (135-145)
[2020-06-12 23:42] LABS: Glucose, Whole Blood 71 mg/dL (60-115)
[2020-06-12 23:42] LABS: Glucose, Whole Blood 122 mg/dL (60-115)
[2020-06-13] VITALS (35 sets, daily range): BP systolic 69–152; BP diastolic 43–93; PULSE 83–100; RESP 16; TEMP 34.9–37.3; O2SAT 99–100; BMI 20.8
[2020-06-13 00:18] LABS: Glucose, Whole Blood 94 mg/dL (60-115)
[2020-06-13] MEDS: Potassium Chloride/H20 40 MEQ/100 ML PIGGYBACK 100 MEQ IV (00:30)
[2020-06-13 01:42] LABS: Anion Gap 13 (12-20); Blood Urea Nitrogen 18 mg/dL (9-16); Calcium 8.2 mg/dL (8.4-10.2); Carbon Dioxide 22 mmol/L (22-29); Chloride 119 mmol/L (96-108); Creatinine Clr Calc Pharmacy 80.8; Estimated Glomerular Filt Rate > 60; Glucose Random 113 mg/dL (60-115); Potassium 4.7 mmol/L (3.3-5.1); Sodium 149 mmol/L (135-145)
[2020-06-13 01:42] LABS: Anion Gap 12 (12-20); Blood Urea Nitrogen 19 mg/dL (9-16); Calcium 7.9 mg/dL (8.4-10.2); Carbon Dioxide 23 mmol/L (22-29); Chloride 118 mmol/L (96-108); Creatinine Clr Calc Pharmacy 80.8; Estimated Glomerular Filt Rate > 60; Glucose Random 87 mg/dL (60-115); Potassium 4.4 mmol/L (3.3-5.1); Sodium 149 mmol/L (135-145)
--- NOTE | 2020-06-13 01:45 | PC.NURSE ---
Addendum entered by Sabra Greer RN 06/13/20 05:37: Pt flaccid, has no cough/gag, no pain response, does not over breath the ventilator. pupils dilated, irregular, and uneven- 9mm and 7mm nonreactive Noted ?reflex with neck movement- patient's arms jerk toward midline- DENTAL LABORATORY TECHNICIAN aware. Vasopressin and d5w stopped per emar, u/o 50-60mls/hr, SBP 110s-140s Original Note: 2100 for cardiac output, levothyroxine gtt was ordered to started and bolus given, hourly labs, 1 amp of d50, and 20 units of insulin R IVP. 2200 labs; k+ 2.7, glucose 24, Flask Pusher aware. Total of 80meq of potassium chloride given, amp of d50, and d5 started at 100/hr. Pt hemodynamically labile; sbp ranging from 70s-170s per chloe. Levophed gtt started and stopped per emar, Vasopressin started for u/o of 250-350mls/hr and Bp support.
[2020-06-13 02:40] LABS: Anion Gap 15 (12-20); Blood Urea Nitrogen 18 mg/dL (9-16); Calcium 8.2 mg/dL (8.4-10.2); Carbon Dioxide 21 mmol/L (22-29); Chloride 118 mmol/L (96-108); Creatinine Clr Calc Pharmacy 78.8; Estimated Glomerular Filt Rate > 60; Glucose Random 161 mg/dL (60-115); Potassium 4.7 mmol/L (3.3-5.1); Sodium 149 mmol/L (135-145)
[2020-06-13 03:39] LABS: Anion Gap 14 (12-20); Blood Urea Nitrogen 18 mg/dL (9-16); Calcium 8.2 mg/dL (8.4-10.2); Carbon Dioxide 20 mmol/L (22-29); Chloride 117 mmol/L (96-108); Creatinine Clr Calc Pharmacy 78.8; Estimated Glomerular Filt Rate > 60; Glucose Random 206 mg/dL (60-115); Potassium 4.3 mmol/L (3.3-5.1); Sodium 147 mmol/L (135-145)
[2020-06-13 04:54] LABS: Anion Gap 13 (12-20); Blood Urea Nitrogen 17 mg/dL (9-16); Calcium 8.1 mg/dL (8.4-10.2); Carbon Dioxide 21 mmol/L (22-29); Chloride 115 mmol/L (96-108); Creatinine Clr Calc Pharmacy 77.8; Estimated Glomerular Filt Rate > 60; Glucose Random 228 mg/dL (60-115); Potassium 4.1 mmol/L (3.3-5.1); Sodium 145 mmol/L (135-145)
[2020-06-13 05:05] LABS: Amylase 34 U/L (28-100); Lipase 10 U/L (8-78)
[2020-06-13 05:20] LABS: ABG Refer to POC result
[2020-06-13] MEDS: Pantoprazole Sodium 40 MG/10 ML VIAL IVPUSH (05:26)
[2020-06-13] MEDS: Piperacillin Sodium/Tazobactam 3.375 GM in 0.9 % Sodium Chloride 50 ML IV ×4 (05:26→23:47)
[2020-06-13 05:48] LABS: Basophils Percent Auto 0.1 % (0-2); Hematocrit 36.2 % (37-47); Hemoglobin 11.7 g/dl (12.0-16.0); Imm Gran Abs Auto 0.05 X10*3/uL (0.00-0.03); Imm Gran Pct Auto 0.3 % (0.0-0.4); Lymphocytes Absolute Auto 0.7 X10*3/uL (1.2-4.9); Lymphocytes Percent Auto 4.6 % (20-40); MANUAL DIFF FLAG SCAN; Mean Corpuscular HGB Conc 32.3 g/dl (31.0-35.0); Mean Corpuscular Hemoglobin 30.7 pg (27.0-33.0); Mean Platelet Volume 9.8 fL (9.4-12.3); Monocytes Absolute Auto 0.3 X10*3/uL (0.1-1.2); Monocytes Percent Auto 1.8 % (2-11); Neutrophils Absolute Auto 13.6 X10*3/uL (2.0-8.3); Neutrophils Percent Auto 93.2 % (45-73); Platelet Count 214 X10*3/uL (160-400); Red Blood Count 3.81 X10*6/uL (4.20-5.50); Red Cell Distribution Width 13.6 % (11.0-16.0); SCAN SMEAR FLAG 1; White Blood Count 14.6 X10*3/uL (4.8-10.8)
[2020-06-13 06:14] LABS: Anion Gap 14 (12-20); Blood Urea Nitrogen 17 mg/dL (9-16); Calcium 8.4 mg/dL (8.4-10.2); Carbon Dioxide 21 mmol/L (22-29); Chloride 116 mmol/L (96-108); Creatinine Clr Calc Pharmacy 78.8; Estimated Glomerular Filt Rate > 60; Glucose Random 260 mg/dL (60-115); Phosphorus 1.7 mg/dL (2.7-4.5); Potassium 3.9 mmol/L (3.3-5.1); Sodium 147 mmol/L (135-145)
[2020-06-13 06:32] LABS: SLIDE REVIEW VERIFIED
[2020-06-13] MEDS: Heparin Sodium,Porcine 5,000 UNIT/ML VIAL 5000 UNIT SUBCUT ×3 (08:07→23:53)
[2020-06-13] MEDS: Chlorhexidine Gluc Oral Rinse 15 ML MOUTHWASH BUCCAL ×3 (08:07→22:50)
[2020-06-13 08:09] LABS: Anion Gap 12 (12-20); Blood Urea Nitrogen 15 mg/dL (9-16); Calcium 8.4 mg/dL (8.4-10.2); Carbon Dioxide 22 mmol/L (22-29); Chloride 118 mmol/L (96-108); Creatinine Clr Calc Pharmacy 83.9; Estimated Glomerular Filt Rate > 60; Glucose Random 257 mg/dL (60-115); Potassium 4.1 mmol/L (3.3-5.1); Sodium 148 mmol/L (135-145)
[2020-06-13] MEDS: fentaNYL citrate/NS 1,000 MCG/100 ML PLAST..BAG 5 MCG IVCONT (08:19)
[2020-06-13] MEDS: Potassium Phosphate 30 MMOL in 0.9 % Sodium Chloride 500 ML 85 MMOL IV (09:04)
[2020-06-13] MEDS: Dextrose 5 % 1,000 ML 75 ML IVCONT (09:04)
[2020-06-13 09:18] LABS: Anion Gap 13 (12-20); Blood Urea Nitrogen 14 mg/dL (9-16); Calcium 8.6 mg/dL (8.4-10.2); Carbon Dioxide 21 mmol/L (22-29); Chloride 120 mmol/L (96-108); Creatinine Clr Calc Pharmacy 81.9; Estimated Glomerular Filt Rate > 60; Glucose Random 267 mg/dL (60-115); Potassium 4.2 mmol/L (3.3-5.1); Sodium 150 mmol/L (135-145)
[2020-06-13 09:47] LABS: Glucose, Whole Blood 267 mg/dL (60-115)
[2020-06-13] MEDS: Insulin Regular/NS 100 UNIT/100 ML PLAST..BAG IVCONT (09:47)
--- NOTE | 2020-06-13 10:00 | CA_ITS ---
Transthoracic Echocardiogram Patient (Last, First, Middle): Stephenie Thao, Gender: Female Date of : 1985 Age: 35 Procedure Date: 06/13/2020 Procedure Type: Transthoracic Echocardiogram Location: ICU Height: 160.02 cm Weight: 52.62 kg BSA: 1.53 m2 Heart Rate: bpm BP: 115 / 85 mmHg Claims Collector: Referring MD: Paddy Hernandez MD Symptoms: organ donation Study Quality: Fair Conclusions: - Normal left ventricular cavity size. - The left ventricular systolic function is mild to moderately decreased. The visually estimated ejection fraction is between 35-40%. - Diastolic function is indeterminate on the basis of available data. - Normal right ventricular cavity size and systolic function. - Tricuspid regurgitation envelope is inadequate for calculation of right ventricular systolic pressure. Indeterminate right atrial pressure. Findings Left Ventricle Normal left ventricular cavity size. There is normal left ventricular wall thickness. The left ventricular systolic function is mild to moderately decreased. The visually estimated ejection fraction is between 35-40%. Diastolic function is indeterminate on the basis of available data. Spectral Doppler is indicative of an impaired relaxation filling pattern. E/E prime ratio is between 8 and 15 consistent with indeterminate filling pressures. Right Ventricle Normal right ventricular cavity size and systolic function. Atria The left atrium is normal in size. Aortic Valve There is a normal trileaflet aortic valve. There is no aortic valve stenosis. There is no aortic valve regurgitation. Mitral Valve The mitral valve appears normal. There is trace mitral valve regurgitation. There is no mitral valve stenosis. Pulmonic Valve Normal pulmonic valve structure and function. There is trace pulmonic valve regurgitation. Tricuspid Valve Normal tricuspid valve structure and function. There is trace tricuspid valve regurgitation. Tricuspid regurgitation envelope is inadequate for calculation of right ventricular systolic pressure. Indeterminate right atrial pressure. Great Vessels All visible segments of the aorta are normal in size. The visualized portions of the pulmonary artery and branches are normal. Venous The inferior vena cava is dilated and does not collapse with inspiration. Pericardium/Pleural There is no evidence of pericardial effusion. Prior Study Comparison Changes noted compared to prior study dated: 06/12/2020. LV is not dilated anymore. EF has improved to 35 to 40%. Measurements 2D Linear Measurements IVSd: 0.84 0.6-0.9/0.6-1.0 cm LVIDd: 4.33 3.9-5.3/4.2-5.9 cm LVIDd Index: 2.83 2.4-3.2/2.2-3.1 cm/m2 LVIDs: 3.79 2.0-3.6 cm LVPWd: 0.84 0.7-1.1 cm Ao Root: 2.70 2.1-3.5 cm LA Diam: 2.00 2.7-3.8/3.0-4.0 cm LAIDs Index: 1.31 1.5-2.3 cm/m2 LV Mass: 140.88 67-162/88-224 g LV Mass Index: 92.08 43-95/49-115 g/m2 LVOT Diam: 2.00 3.0+(-)1.3 cm 2D Systolic Function EF 4C: 41.10 >55% EF 2C: 42.60 >55% EF BiP: 39.80 >55% Mitral Valve MV Pk E: 0.55 MV PK A: 0.90 MV Decel Time: 180.00 E/A: 0.60 E'Lateral: 7.35 E'Medial: 5.22 E/E' Med: 10.60 E/E' Lat: 7.50 PHT: 53.00 MVA PHT: 4.15 Decel [place]: 3.08 Aortic Valve AoV Pk [place]: 1.20 AoV Mn [place]: 0.80 AoV VTI: 0.25 AoV Pk Grad: 6.00 Aov Mn Grad: 3.00 RABIA Cont.VTI: 2.33 LVOT LVOT Pk [place]: 0.88 LVOT Mn [place]: 0.55 LVOT VTI: 0.18 LVOT Pk Grad: 3.00 LVOT Mn Grad: 2.00 LVOT Diam: 2.00 LVOT Area: 3.14 Diastolic Function MV Pk E: 0.55 MV Pk A: 0.90 E/A: 0.60 E'Medial: 5.22 E/E' Med: 10.60 E' Laterial: 7.35 E/E' Lat: 7.50 Tricuspid Valve TR Pk Yordy: 1.78 TR Pk Grad: 13.00 RA Press: 3.00 Great Vessels Aorta Ao Root-2D: 2.70 2.0-3.7 cm Ao Asc: 3.00 2.1-3.4 cm Pulmonary Valve PV Pk Yordy: 0.94 Peak PV Grad: 4.00 Updated in Other Vendor System with Status of Final Levar Restrepo MD electronically signed on 06/13/2020 2:24:19 PM with status of Final
[2020-06-13 10:03] LABS: Glucose, Whole Blood 239 mg/dL (60-115)
[2020-06-13 10:04] LABS: Anion Gap 17 (12-20); Blood Urea Nitrogen 14 mg/dL (9-16); Calcium 8.6 mg/dL (8.4-10.2); Carbon Dioxide 18 mmol/L (22-29); Chloride 120 mmol/L (96-108); Estimated Glomerular Filt Rate > 60; Glucose Random 273 mg/dL (60-115); Potassium 4.2 mmol/L (3.3-5.1); Sodium 151 mmol/L (135-145)
[2020-06-13 10:56] LABS: Anion Gap 11 (12-20); Blood Urea Nitrogen 13 mg/dL (9-16); Calcium 8.6 mg/dL (8.4-10.2); Carbon Dioxide 22 mmol/L (22-29); Chloride 122 mmol/L (96-108); Estimated Glomerular Filt Rate > 60; Glucose Random 288 mg/dL (60-115); Potassium 4.2 mmol/L (3.3-5.1); Sodium 151 mmol/L (135-145)
[2020-06-13 11:10] LABS: Glucose, Whole Blood 251 mg/dL (60-115)
[2020-06-13 11:45] LABS: Glucose Urine UA 250 MG/DL (NEG); Leukocyte Esterase Urine NEG (NEG); Nitrite Urine NEG (NEG); PH 6.5 (5.0-8.0); Specific Gravity - Urine <= 1.005 (1.005-1.025); Urine Blood NEG (NEG); Urine Ketones NEG (NEG); Urine Protein NEG (NEG-TRACE)
[2020-06-13 11:47] LABS: Appearance Urine CLEAR; Color Urine STRAW
[2020-06-13 11:58] LABS: Glucose, Whole Blood 237 mg/dL (60-115)
[2020-06-13 12:30] LABS: Anion Gap 15 (12-20); Blood Urea Nitrogen 13 mg/dL (9-16); Calcium 8.3 mg/dL (8.4-10.2); Carbon Dioxide 19 mmol/L (22-29); Chloride 122 mmol/L (96-108); Creatinine Clr Calc Pharmacy 77.2; Estimated Glomerular Filt Rate > 60; Glucose Random 273 mg/dL (60-115); Potassium 4.4 mmol/L (3.3-5.1); Sodium 152 mmol/L (135-145)
[2020-06-13 12:43] LABS: Vancomycin Trough 5.9 mcg/mL (10.0-20.0)
[2020-06-13 13:01] LABS: Glucose, Whole Blood 225 mg/dL (60-115)
[2020-06-13] MEDS: vancomycin HCL 750 MG in 0.9 % Sodium Chloride 250 ML 270 MG IV ×2 (13:12→23:52)
[2020-06-13 13:42] LABS: Basophils Percent Auto 0.1 % (0-2); Hematocrit 31.8 % (37-47); Hemoglobin 10.3 g/dl (12.0-16.0); Imm Gran Abs Auto 0.07 X10*3/uL (0.00-0.03); Imm Gran Pct Auto 0.4 % (0.0-0.4); Mean Corpuscular HGB Conc 32.4 g/dl (31.0-35.0); Mean Corpuscular Hemoglobin 31.2 pg (27.0-33.0); Mean Corpuscular Volume 96.4 fL (80-98); Mean Platelet Volume 9.9 fL (9.4-12.3); Monocytes Absolute Auto 0.4 X10*3/uL (0.1-1.2); Monocytes Percent Auto 2.7 % (2-11); Neutrophils Absolute Auto 14.6 X10*3/uL (2.0-8.3); Neutrophils Percent Auto 90.8 % (45-73); Platelet Count 217 X10*3/uL (160-400); Red Cell Distribution Width 13.7 % (11.0-16.0); SCAN SMEAR FLAG 1; White Blood Count 16.1 X10*3/uL (4.8-10.8)
[2020-06-13 13:47] LABS: INTERNATIONAL NORM RATIO 1.1 (0.9-1.1); Prothrombin Time 13.1 SEC (10.8-13.0)
[2020-06-13 13:49] LABS: Partial Thromboplastin Time 37.1 SEC (24.1-38.0)
[2020-06-13 14:02] LABS: Glucose, Whole Blood 196 mg/dL (60-115)
--- NOTE | 2020-06-13 14:06 | PM.CCPN ---
Subjective Subjective Date of Service: 06/13/20 Interval History: 35-year-old lady with underlying history of substance abuse admitted on 06/11/2020 after an out of hospital cardiac arrest with unclear down time (minimum of 15 minutes) with return of spontaneous circulation achieved after approximately 15 minutes of CPR, intubated on the field. Upon arrival to emergency room central line was placed for vasopressor support. Patient initial CT head was significant for significant anoxic injury with uncal herniation. 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 She was treated with desmopressin. Patient's mother was notified of essentially no chances of recovery and decided to proceed with organ donation. Patient's family requested no brain examination. No events overnight. Physical Exam Vital Signs: Vital Signs: Last Vital Signs Temp 95.9 F L 06/13/20 14:00 Pulse 85 06/13/20 14:00 Resp 16 06/13/20 14:00 BP 132/76 06/13/20 14:00 Pulse Ox 100 06/13/20 14:00 Body Mass Index 20.8 Const: General: other (Comatose) Eyes: Sclerae: sclerae normal Pupils: Dilated pupils and Fixed pupils Neck: Neck: Yes no lymphadenopathy, Yes trachea midline and Yes supple Resp: Auscultation: clear to auscultation bilaterally Cardio: Rate: regular rate Rhythm: regular rhythm Heart sounds: no gallops, no murmurs and no rubs GI: Palpation (GI): Soft to palpation and Other GI palpation findings present ( Nontender) Auscultation: normal bowel sounds Extrem: General: Yes no pedal edema, No clubbing and No cyanosis Objective Data Labs CBC & Chem 7: 06/13/20 05:18 06/13/20 11:27 Labs: Laboratory Results - last 24 hr 06/12/20 06/12/20 06/12/20 14:18 14:18 14:18 WBC RBC Hgb Hct MCV MCH MCHC RDW Plt Count MPV Immature Gran % (Auto) Neut % (Auto) Lymph % (Auto) [place] % (Auto) Eos % (Auto) Baso % (Auto) Lymph # (Auto) [place] # (Auto) Eos # (Auto) Baso # (Auto) Abs Immat Gran (auto) Absolute Neuts (auto) Absolute Nucleated RBC Nucleated RBC % (auto) Smear Tech's Comments PT 12.0 INR 1.0 APTT 27.1 Sodium Potassium Chloride Carbon Dioxide Anion Gap BUN Creatinine Estim Creat Clear Calc Estimated GFR POC Glucose Random Glucose Calcium Phosphorus Magnesium Total Bilirubin 0.5 Direct Bilirubin 0.2 AST 78 H ALT 55 H Alkaline Phosphatase 69 Total Protein 5.6 L Albumin 3.4 L Amylase 36 Lipase 11 Urine Color Urine Appearance Urine pH Ur Specific [place] Urine Protein Urine Glucose (UA) Urine Ketones Urine Blood Urine Nitrite Ur Leukocyte Esterase Urine RBC Urine WBC Ur Squamous Epith Cells Urine Bacteria Vancomycin Trough 06/12/20 06/12/20 06/12/20 17:49 17:49 20:01 WBC 15.7 H RBC 3.67 L Hgb 11.3 L Hct 34.4 L MCV 93.7 MCH 30.8 MCHC 32.8 RDW 13.4 Plt Count 228 MPV 9.5 Immature Gran % (Auto) 0.4 Neut % (Auto) 76.5 H Lymph % (Auto) 16.1 L [place] % (Auto) 6.6 Eos % (Auto) 0.3 Baso % (Auto) 0.1 Lymph # (Auto) 2.5 [place] # (Auto) 1.0 Eos # (Auto) 0.0 Baso # (Auto) 0.0 Abs Immat Gran (auto) 0.06 H Absolute Neuts (auto) 12.0 H Absolute Nucleated RBC 0.000 Nucleated RBC % (auto) 0.0 Smear Tech's Comments PT INR APTT Sodium 145 Potassium 3.4 Chloride 113 H Carbon Dioxide 26 Anion Gap 9 L BUN 24 H Creatinine 0.76 Estim Creat Clear Calc 84.0 Estimated GFR > 60 POC Glucose 79 Random Glucose 76 D Calcium 7.8 L D Phosphorus Magnesium Total Bilirubin 0.5 Direct Bilirubin AST 67 H ALT 51 H Alkaline Phosphatase 65 Total Protein 5.4 L Albumin 3.2 L Amylase Lipase Urine Color Urine Appearance Urine pH Ur Specific [place] Urine Protein Urine Glucose (UA) Urine Ketones Urine Blood Urine Nitrite Ur Leukocyte Esterase Urine RBC Urine WBC Ur Squamous Epith Cells Urine Bacteria Vancomycin Trough 06/12/20 06/12/20 06/12/20 22:06 22:28 22:56 WBC RBC Hgb Hct MCV MCH MCHC RDW Plt Count MPV Immature Gran % (Auto) Neut % (Auto) Lymph % (Auto) [place] % (Auto) Eos % (Auto) Baso % (Auto) Lymph # (Auto) [place] # (Auto) Eos # (Auto) Baso # (Auto) Abs Immat Gran (auto) Absolute Neuts (auto) Absolute Nucleated RBC Nucleated RBC % (auto) Smear Tech's Comments PT INR APTT Sodium 148 H 149 H Potassium 2.7 L D 2.9 L Chloride 116 H 119 H Carbon Dioxide 25 25 Anion Gap 10 L 8 L BUN 21 H 20 H Creatinine 0.83 0.74 Estim Creat Clear Calc 76.8 86.3 Estimated GFR > 60 > 60 POC Glucose Random Glucose 24 L* 19 L* Calcium 7.8 L 7.6 L Phosphorus Magnesium Total Bilirubin Direct Bilirubin AST ALT Alkaline Phosphatase Total Protein Albumin Amylase Lipase Urine Color COLORLESS Urine Appearance CLEAR Urine pH 6.0 Ur Specific [place] <= 1.005 Urine Protein NEG Urine Glucose (UA) NEG Urine Ketones NEG Urine Blood TRACE Urine Nitrite NEG Ur Leukocyte Esterase NEG Urine RBC 0-2 Urine WBC 0-2 Ur Squamous Epith Cells TRACE Urine Bacteria TRACE Vancomycin Trough 06/12/20 06/12/20 06/13/20 23:18 23:39 00:08 WBC RBC Hgb Hct MCV MCH MCHC RDW Plt Count MPV Immature Gran % (Auto) Neut % (Auto) Lymph % (Auto) [place] % (Auto) Eos % (Auto) Baso % (Auto) Lymph # (Auto) [place] # (Auto) Eos # (Auto) Baso # (Auto) Abs Immat Gran (auto) Absolute Neuts (auto) Absolute Nucleated RBC Nucleated RBC % (auto) Smear Tech's Comments PT INR APTT Sodium 149 H Potassium 4.4 D Chloride 118 H Carbon Dioxide 23 Anion Gap 12 BUN 19 H Creatinine 0.79 Estim Creat Clear Calc 80.8 Estimated GFR > 60 POC Glucose 122 H 71 Random Glucose 87 D Calcium 7.9 L Phosphorus Magnesium Total Bilirubin Direct Bilirubin AST ALT Alkaline Phosphatase Total Protein Albumin Amylase Lipase Urine Color Urine Appearance Urine pH Ur Specific [place] Urine Protein Urine Glucose (UA) Urine Ketones Urine Blood Urine Nitrite Ur Leukocyte Esterase Urine RBC Urine WBC Ur Squamous Epith Cells Urine Bacteria Vancomycin Trough 06/13/20 06/13/20 06/13/20 00:15 00:58 00:58 WBC RBC Hgb Hct MCV MCH MCHC RDW Plt Count MPV Immature Gran % (Auto) Neut % (Auto) Lymph % (Auto) [place] % (Auto) Eos % (Auto) Baso % (Auto) Lymph # (Auto) [place] # (Auto) Eos # (Auto) Baso # (Auto) Abs Immat Gran (auto) Absolute Neuts (auto) Absolute Nucleated RBC Nucleated RBC % (auto) Smear Tech's Comments PT INR APTT Sodium 149 H Potassium 4.7 Chloride 119 H Carbon Dioxide 22 Anion Gap 13 BUN 18 H Creatinine 0.79 Estim Creat Clear Calc 80.8 Estimated GFR > 60 POC Glucose 94 Random Glucose 113 Calcium 8.2 L Phosphorus Magnesium Total Bilirubin Direct Bilirubin AST ALT Alkaline Phosphatase Total Protein Albumin Amylase Lipase Cancelled Urine Color Urine Appearance Urine pH Ur Specific [place] Urine Protein Urine Glucose (UA) Urine Ketones Urine Blood Urine Nitrite Ur Leukocyte Esterase Urine RBC Urine WBC Ur Squamous Epith Cells Urine Bacteria Vancomycin Trough 06/13/20 06/13/20 06/13/20 01:55 01:55 02:56 WBC RBC Hgb Hct MCV MCH MCHC RDW Plt Count MPV Immature Gran % (Auto) Neut % (Auto) Lymph % (Auto) [place] % (Auto) Eos % (Auto) Baso % (Auto) Lymph # (Auto) [place] # (Auto) Eos # (Auto) Baso # (Auto) Abs Immat Gran (auto) Absolute Neuts (auto) Absolute Nucleated RBC Nucleated RBC % (auto) Smear Tech's Comments PT INR APTT Sodium 149 H 147 H Potassium 4.7 4.3 Chloride 118 H 117 H Carbon Dioxide 21 L 20 L Anion Gap 15 14 BUN 18 H 18 H Creatinine 0.81 0.81 Estim Creat Clear Calc 78.8 78.8 Estimated GFR > 60 > 60 POC Glucose Random Glucose 161 H D 206 H Calcium 8.2 L 8.2 L Phosphorus Magnesium Total Bilirubin Direct Bilirubin AST ALT Alkaline Phosphatase Total Protein Albumin Amylase Cancelled 34 Lipase 10 Urine Color Urine Appearance Urine pH Ur Specific [place] Urine Protein Urine Glucose (UA) Urine Ketones Urine Blood Urine Nitrite Ur Leukocyte Esterase Urine RBC Urine WBC Ur Squamous Epith Cells Urine Bacteria Vancomycin Trough 06/13/20 06/13/20 06/13/20 03:55 05:18 05:18 WBC 14.6 H RBC 3.81 L Hgb 11.7 L Hct 36.2 L MCV 95.0 MCH 30.7 MCHC 32.3 RDW 13.6 Plt Count 214 MPV 9.8 Immature Gran % (Auto) 0.3 Neut % (Auto) 93.2 H Lymph % (Auto) 4.6 L [place] % (Auto) 1.8 L Eos % (Auto) 0.0 Baso % (Auto) 0.1 Lymph # (Auto) 0.7 L [place] # (Auto) 0.3 Eos # (Auto) 0.0 Baso # (Auto) 0.0 Abs Immat Gran (auto) 0.05 H Absolute Neuts (auto) 13.6 H Absolute Nucleated RBC 0.000 Nucleated RBC % (auto) 0.0 Smear Tech's Comments VERIFIED PT INR APTT Sodium 145 147 H Potassium 4.1 3.9 Chloride 115 H 116 H Carbon Dioxide 21 L 21 L Anion Gap 13 14 BUN 17 H 17 H Creatinine 0.82 0.81 Estim Creat Clear Calc 77.8 78.8 Estimated GFR > 60 > 60 POC Glucose Random Glucose 228 H 260 H Calcium 8.1 L 8.4 Phosphorus 1.7 L Magnesium 2.0 Total Bilirubin Direct Bilirubin AST ALT Alkaline Phosphatase Total Protein Albumin Amylase Lipase Urine Color Urine Appearance Urine pH Ur Specific [place] Urine Protein Urine Glucose (UA) Urine Ketones Urine Blood Urine Nitrite Ur Leukocyte Esterase Urine RBC Urine WBC Ur Squamous Epith Cells Urine Bacteria Vancomycin Trough 06/13/20 06/13/20 06/13/20 07:16 08:34 09:00 WBC RBC Hgb Hct MCV MCH MCHC RDW Plt Count MPV Immature Gran % (Auto) Neut % (Auto) Lymph % (Auto) [place] % (Auto) Eos % (Auto) Baso % (Auto) Lymph # (Auto) [place] # (Auto) Eos # (Auto) Baso # (Auto) Abs Immat Gran (auto) Absolute Neuts (auto) Absolute Nucleated RBC Nucleated RBC % (auto) Smear Tech's Comments PT INR APTT Sodium 148 H 150 H 151 H Potassium 4.1 4.2 4.2 Chloride 118 H 120 H 120 H Carbon Dioxide 22 21 L 18 L Anion Gap 12 13 17 BUN 15 14 14 Creatinine 0.80 0.82 0.85 Estim Creat Clear Calc 83.9 81.9 79.0 Estimated GFR > 60 > 60 > 60 POC Glucose Random Glucose 257 H 267 H 273 H Calcium 8.4 8.6 8.6 Phosphorus Magnesium Total Bilirubin Direct Bilirubin AST ALT Alkaline Phosphatase Total Protein Albumin Amylase Lipase Urine Color Urine Appearance Urine pH Ur Specific [place] Urine Protein Urine Glucose (UA) Urine Ketones Urine Blood Urine Nitrite Ur Leukocyte Esterase Urine RBC Urine WBC Ur Squamous Epith Cells Urine Bacteria Vancomycin Trough 06/13/20 06/13/20 06/13/20 09:36 10:00 10:06 WBC RBC Hgb Hct MCV MCH MCHC RDW Plt Count MPV Immature Gran % (Auto) Neut % (Auto) Lymph % (Auto) [place] % (Auto) Eos % (Auto) Baso % (Auto) Lymph # (Auto) [place] # (Auto) Eos # (Auto) Baso # (Auto) Abs Immat Gran (auto) Absolute Neuts (auto) Absolute Nucleated RBC Nucleated RBC % (auto) Smear Tech's Comments PT INR APTT Sodium 151 H Potassium 4.2 Chloride 122 H Carbon Dioxide 22 Anion Gap 11 L BUN 13 Creatinine 0.85 Estim Creat Clear Calc 79.0 Estimated GFR > 60 POC Glucose 267 H 239 H Random Glucose 288 H Calcium 8.6 Phosphorus Magnesium Total Bilirubin Direct Bilirubin AST ALT Alkaline Phosphatase Total Protein Albumin Amylase Lipase Urine Color Urine Appearance Urine pH Ur Specific [place] Urine Protein Urine Glucose (UA) Urine Ketones Urine Blood Urine Nitrite Ur Leukocyte Esterase Urine RBC Urine WBC Ur Squamous Epith Cells Urine Bacteria Vancomycin Trough 06/13/20 06/13/20 06/13/20 10:57 11:27 11:30 WBC RBC Hgb Hct MCV MCH MCHC RDW Plt Count MPV Immature Gran % (Auto) Neut % (Auto) Lymph % (Auto) [place] % (Auto) Eos % (Auto) Baso % (Auto) Lymph # (Auto) [place] # (Auto) Eos # (Auto) Baso # (Auto) Abs Immat Gran (auto) Absolute Neuts (auto) Absolute Nucleated RBC Nucleated RBC % (auto) Smear Tech's Comments PT INR APTT Sodium 152 H Potassium 4.4 Chloride 122 H Carbon Dioxide 19 L Anion Gap 15 BUN 13 Creatinine 0.87 Estim Creat Clear Calc 77.2 Estimated GFR > 60 POC Glucose 251 H Random Glucose 273 H Calcium 8.3 L Phosphorus Magnesium Total Bilirubin Direct Bilirubin AST ALT Alkaline Phosphatase Total Protein Albumin Amylase Lipase Urine Color Urine Appearance Urine pH Ur Specific [place] Urine Protein Urine Glucose (UA) Urine Ketones Urine Blood Urine Nitrite Ur Leukocyte Esterase Urine RBC Urine WBC Ur Squamous Epith Cells Urine Bacteria Vancomycin Trough 5.9 L 06/13/20 06/13/20 06/13/20 11:34 11:48 12:52 WBC RBC Hgb Hct MCV MCH MCHC RDW Plt Count MPV Immature Gran % (Auto) Neut % (Auto) Lymph % (Auto) [place] % (Auto) Eos % (Auto) Baso % (Auto) Lymph # (Auto) [place] # (Auto) Eos # (Auto) Baso # (Auto) Abs Immat Gran (auto) Absolute Neuts (auto) Absolute Nucleated RBC Nucleated RBC % (auto) Smear Tech's Comments PT INR APTT Sodium Potassium Chloride Carbon Dioxide Anion Gap BUN Creatinine Estim Creat Clear Calc Estimated GFR POC Glucose 237 H 225 H Random Glucose Calcium Phosphorus Magnesium Total Bilirubin Direct Bilirubin AST ALT Alkaline Phosphatase Total Protein Albumin Amylase Lipase Urine Color STRAW Urine Appearance CLEAR Urine pH 6.5 Ur Specific [place] <= 1.005 Urine Protein NEG Urine Glucose (UA) 250 H Urine Ketones NEG Urine Blood NEG Urine Nitrite NEG Ur Leukocyte Esterase NEG Urine RBC Urine WBC Ur Squamous Epith Cells Urine Bacteria Vancomycin Trough 06/13/20 06/13/20 06/13/20 13:20 13:20 13:58 WBC RBC Hgb Hct MCV MCH MCHC RDW Plt Count MPV Immature Gran % (Auto) Neut % (Auto) Lymph % (Auto) [place] % (Auto) Eos % (Auto) Baso % (Auto) Lymph # (Auto) [place] # (Auto) Eos # (Auto) Baso # (Auto) Abs Immat Gran (auto) Absolute Neuts (auto) Absolute Nucleated RBC Nucleated RBC % (auto) Smear Tech's Comments PT 13.1 H INR 1.1 APTT 37.1 D Sodium Potassium Chloride Carbon Dioxide Anion Gap BUN Creatinine Estim Creat Clear Calc Estimated GFR POC Glucose 196 H Random Glucose Calcium Phosphorus Magnesium Total Bilirubin Direct Bilirubin AST ALT Alkaline Phosphatase Total Protein Albumin Amylase Lipase Urine Color Urine Appearance Urine pH Ur Specific [place] Urine Protein Urine Glucose (UA) Urine Ketones Urine Blood Urine Nitrite Ur Leukocyte Esterase Urine RBC Urine WBC Ur Squamous Epith Cells Urine Bacteria Vancomycin Trough Microbiology Microbiology Results: Microbiology 06/11/20 21:13 Blood - Venous Blood Culture - Preliminary Gram negative tamara 06/11/20 21:13 Blood - Venous Blood Culture - Preliminary No growth after 24 hours. Progress Note: A&P Assessment and plan (1) Diabetes insipidus: Status: Acute Assessment and Plan: Assessment: 35-year-old with underlying substance abuse admitted after an out of hospital cardiac arrest with severe anoxic injury and uncal herniation on admission CT scan of the head, being evaluated for organ donation. Plan: Neuro: Severe anoxic encephalopathy after an out of hospital cardiac arrest likely secondary to underlying substance abuse with resultant on-call herniation and brain edema. Patient's family requested no brain examination. Cardiac: Blood pressure labile. Status post out of hospital cardiac arrest likely secondary to substance abuse. Arterial line placed for hemodynamic monitoring. Esmolol drip for hypertensive emergency associated with brain edema. Pulmonary: Acute respiratory failure, intubated during the cardiopulmonary resuscitation. Continue ventilatory support during organ donation evaluation. 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 Continue to monitor electrolytes and urine output. D5 increased to 150. Will administer 2nd dose of desmopressin. Endo: No acute issues. GI: No acute issues. ID: Gram-negative bacteria on initial blood culture Gram stain. Empirically covered with broad-spectrum antibiotics. Heme/Onc: No acute issues. Psych: No acute issues. Miscellaneous: No acute issues. Prophylaxis: Heparin, ppi Diet: Nothing by mouth Critical care time spent: 60 minutes (2) Hypertensive emergency: Status: Acute (3) Brain edema: Status: Acute (4) Bacteremia: Status: Acute (5) Substance abuse: Status: Acute (6) Cardiac arrest: Status: Acute (7) Anoxic brain injury: Status: Acute Critical Care Time Critical Care Time (minutes): 60
[2020-06-13 14:11] LABS: Calcium 8.6 mg/dL (8.4-10.2)
[2020-06-13 14:13] LABS: MANUAL DIFF FLAG SCAN
[2020-06-13] MEDS: Dextrose 5 % 1,000 ML 100 ML IVCONT (14:13)
[2020-06-13 14:15] LABS: Phosphorus 2.9 mg/dL (2.7-4.5); SLIDE REVIEW VERIFIED
[2020-06-13 14:17] LABS: Magnesium 2.5 mg/dL (1.6-2.6)
[2020-06-13 14:20] LABS: Alanine Aminotransferase 38 U/L (0-31); Albumin Level 2.9 g/dL (3.5-5.0); Alkaline Phosphatase 54 U/L (39-117); Aspartate Amino Transferase 31 U/L (5-31); Bilirubin Direct 0.2 mg/dL (0.0-0.5); Bilirubin Total 0.4 mg/dL (0.0-1.0); Total Protein 5.1 g/dL (6.5-8.0)
--- NOTE | 2020-06-13 14:46 | MHC.CM.PN ---
Pt has been accepted by [facility] - pt will require another 24 hours of testing and culture results before organs will be collected. Family has been in to visit with pt: pt's son may visit later today with his guardian/grandparents. CM will be available should pt/family or ICU staff request assistance
[2020-06-13 14:57] LABS: Troponin-I High Sensitivity 515.1 ng/L (<3.5-17.0)
[2020-06-13 15:28] LABS: Glucose, Whole Blood 197 mg/dL (60-115)
[2020-06-13 15:28] LABS: Estimated Average Glucose 85 mg/dL; Hemoglobin A1c % 4.6 %
[2020-06-13] MEDS: LEVOTHYROXINE SODIUM IVCONT (15:29)
[2020-06-13] MEDS: SODIUM CHLORIDE 0.9% IVCONT (15:29)
[2020-06-13] MEDS: Sodium Bicarbonate 8.4% 50 MEQ/50 ML VIAL IVPUSH (15:45)
[2020-06-13 16:26] LABS: ABG Base Excess 1.6 mmol/L; ABG HCO3 24 mmol/L (22-26); ABG pCO2 33 mmHg (32-45); ABG pCO2 TC 31 mmHg (32-45); ABG pH 7.48 (7.35-7.45); ABG pO2 544 mmHg (83-108); ABG pO2 TC 533 (83-108)
[2020-06-13 16:30] LABS: Glucose, Whole Blood 180 mg/dL (60-115)
[2020-06-13 16:58] LABS: Glucose, Whole Blood 177 mg/dL (60-115)
--- NOTE | 2020-06-13 17:06 | MHC.CARE ---
Case management reaches out to CARE Team to request support for pt's family. CARE Team meets with pt's parents, aunt and son to provide emotional support and offer referral to resources. Father reports that pt's son had a session with his individual therapist today, who helped make a plan for son to come to the ED and see the pt. CARE Team offers support to pt's son. He appears to be very well supported by family and is not currently in any aparant emotional distress. He chats with CARE Team about his upcoming birthday next month. CARE Team suggests to pt's son that if he does begin to struggle emotionally, feeling sad, mad, or scared, that he approach a family member for support. Pt agrees to this. Family is provided with contact information for the CARE Team and is encouraged to reach out from home if needed. CARE Team is available to return to the ICU to meet with the family at any time. Family is aware of service that CARE Team provides and they agree to reach out.
[2020-06-13 17:19] LABS: MANUAL DIFF FLAG NO
[2020-06-13 17:22] LABS: Basophils Percent Auto 0.1 % (0-2); Hematocrit 29.2 % (37-47); Hemoglobin 9.5 g/dl (12.0-16.0); Imm Gran Abs Auto 0.12 X10*3/uL (0.00-0.03); Imm Gran Pct Auto 0.6 % (0.0-0.4); Lymphocytes Absolute Auto 1.2 X10*3/uL (1.2-4.9); Lymphocytes Percent Auto 6.7 % (20-40); Mean Corpuscular HGB Conc 32.5 g/dl (31.0-35.0); Mean Corpuscular Hemoglobin 31.3 pg (27.0-33.0); Mean Corpuscular Volume 96.1 fL (80-98); Mean Platelet Volume 9.9 fL (9.4-12.3); Monocytes Absolute Auto 0.7 X10*3/uL (0.1-1.2); Monocytes Percent Auto 3.8 % (2-11); Neutrophils Absolute Auto 16.5 X10*3/uL (2.0-8.3); Neutrophils Percent Auto 88.8 % (45-73); Platelet Count 209 X10*3/uL (160-400); Red Blood Count 3.04 X10*6/uL (4.20-5.50); Red Cell Distribution Width 13.9 % (11.0-16.0); White Blood Count 18.6 X10*3/uL (4.8-10.8)
--- NOTE | 2020-06-13 17:27 | PC.NURSE ---
Pt unresponsive intubated 25cm lip #7 ET tube A/C V/C Vt 400 RR 16 (does not breath over vent), PEEP 5, FiO2 30%, SaO2 98-100%. Lungs clear except RLL inspiratory rhonchi. Mininmal to none inline secretions, sputum sent. BP trended down 88/50, levophed at 0.05, urine output did not exceed >300ml x2 hrs, therefore vasopressin was not started. DDAVP 1mcg given per MD David. Pt is in NSR 90s, inverted twaves in lead I+II, QTC pronlonging max 580, trending down to 530s after 50mEq bicarb given. No edema 3+ pulses all extrem. Skin scattered scabing/bruising, track nguyen. No pressure injuries. Labs ordered per [facility] recomendations. Pt pupils dilated fixed right 9mm irregular, left 7mm regular, MD aware. Insulin drip started, no bolus given per MD, currently running at 5u/hr. 30mmol KPHOS infused. 24hr blood culture from 06/12 negative. Plan is for organ harvest sometime after 3pm 06/14 given f/u 48hr blood cultures negative. Pt is on elyse hugger, hypothermic down to 95.7, currently 98.1. [facility] staff states lungs have been accepeted, heart declined, waiting for liver to be assessed.
[2020-06-13 17:31] LABS: INTERNATIONAL NORM RATIO 1.1 (0.9-1.1); Prothrombin Time 13.3 SEC (10.8-13.0)
[2020-06-13 18:13] LABS: Glucose, Whole Blood 165 mg/dL (60-115)
[2020-06-13 18:16] LABS: Anion Gap 12 (12-20); Carbon Dioxide 23 mmol/L (22-29); Chloride 126 mmol/L (96-108); Potassium 3.8 mmol/L (3.3-5.1); Sodium 157 mmol/L (135-145)
[2020-06-13 18:17] LABS: Blood Urea Nitrogen 13 mg/dL (9-16); Creatinine Clr Calc Pharmacy 89.5; Estimated Glomerular Filt Rate > 60; Glucose Random 201 mg/dL (60-115)
[2020-06-13] MEDS: Artificial Tears 15 ML DROPS 1 DROP EYE-BOTH (18:40)
[2020-06-13 19:04] LABS: Glucose, Whole Blood 157 mg/dL (60-115)
[2020-06-13] MEDS: Dextrose 5 % 1,000 ML 250 ML IVCONT (19:57)
[2020-06-13 21:04] LABS: Glucose, Whole Blood 179 mg/dL (60-115)
[2020-06-13 21:15] LABS: Glucose, Whole Blood 188 mg/dL (60-115)
[2020-06-13 21:42] LABS: ABG Refer to POC result
[2020-06-13 21:45] LABS: Lactic Acid 1.8 mmol/L (0.5-2.0)
[2020-06-13 22:05] LABS: Alanine Aminotransferase 31 U/L (0-31); Albumin Level 2.8 g/dL (3.5-5.0); Alkaline Phosphatase 49 U/L (39-117); Amylase 19 U/L (28-100); Anion Gap 12 (12-20); Aspartate Amino Transferase 22 U/L (5-31); Bilirubin Direct < 0.2 mg/dL (0.0-0.5); Bilirubin Total 0.4 mg/dL (0.0-1.0); Blood Urea Nitrogen 14 mg/dL (9-16); Calcium 8.1 mg/dL (8.4-10.2); Carbon Dioxide 24 mmol/L (22-29); Chloride 121 mmol/L (96-108); Estimated Glomerular Filt Rate > 60; Glucose Random 197 mg/dL (60-115); Lipase 9 U/L (8-78); Magnesium 2.2 mg/dL (1.6-2.6); Phosphorus 3.8 mg/dL (2.7-4.5); Potassium 3.9 mmol/L (3.3-5.1); Sodium 153 mmol/L (135-145); Total Protein 4.9 g/dL (6.5-8.0)
[2020-06-13 22:17] LABS: Glucose, Whole Blood 185 mg/dL (60-115)
[2020-06-13 22:55] LABS: Glucose, Whole Blood 173 mg/dL (60-115)
[2020-06-13] MEDS: Furosemide 20 MG/2 ML VIAL IVPUSH (23:38)
[2020-06-14] VITALS (22 sets, daily range): BP systolic 104–146; BP diastolic 55–87; PULSE 88–100; RESP 16; TEMP 35.7–36.9; O2SAT 98–100; BMI 21.2
[2020-06-14] MEDS: Dextrose 5 % 1,000 ML 250 ML IVCONT ×3 (00:03→08:41)
[2020-06-14 00:16] LABS: Glucose Urine UA NEG (NEG); Leukocyte Esterase Urine NEG (NEG); Nitrite Urine NEG (NEG); Specific Gravity - Urine 1.015 (1.005-1.025); Urine Blood NEG (NEG); Urine Ketones NEG (NEG); Urine Protein NEG (NEG-TRACE)
[2020-06-14 00:23] LABS: Appearance Urine CLEAR; Color Urine COLORLESS
[2020-06-14 00:25] LABS: Glucose, Whole Blood 157 mg/dL (60-115)
[2020-06-14 00:27] LABS: Basophils Percent Auto 0.1 % (0-2); Hematocrit 28.6 % (37-47); Hemoglobin 9.3 g/dl (12.0-16.0); Imm Gran Pct Auto 0.8 % (0.0-0.4); Lymphocytes Absolute Auto 1.3 X10*3/uL (1.2-4.9); Lymphocytes Percent Auto 5.4 % (20-40); MANUAL DIFF FLAG SCAN; Mean Corpuscular HGB Conc 32.5 g/dl (31.0-35.0); Mean Corpuscular Hemoglobin 31.3 pg (27.0-33.0); Mean Corpuscular Volume 96.3 fL (80-98); Mean Platelet Volume 9.6 fL (9.4-12.3); Monocytes Absolute Auto 1.3 X10*3/uL (0.1-1.2); Monocytes Percent Auto 5.6 % (2-11); Neutrophils Absolute Auto 21.1 X10*3/uL (2.0-8.3); Neutrophils Percent Auto 88.1 % (45-73); Platelet Count 230 X10*3/uL (160-400); Red Blood Count 2.97 X10*6/uL (4.20-5.50); SCAN SMEAR FLAG 1
[2020-06-14 00:33] LABS: SLIDE REVIEW VERIFIED
[2020-06-14 00:37] LABS: INTERNATIONAL NORM RATIO 1.1 (0.9-1.1); Prothrombin Time 13.1 SEC (10.8-13.0)
[2020-06-14 00:56] LABS: Alanine Aminotransferase 33 U/L (0-31); Albumin Level 2.9 g/dL (3.5-5.0); Alkaline Phosphatase 51 U/L (39-117); Aspartate Amino Transferase 20 U/L (5-31); Bilirubin Direct < 0.2 mg/dL (0.0-0.5); Bilirubin Total 0.4 mg/dL (0.0-1.0); Calcium 8.1 mg/dL (8.4-10.2); Phosphorus 3.7 mg/dL (2.7-4.5); Total Protein 5.1 g/dL (6.5-8.0)
[2020-06-14 01:40] LABS: Glucose, Whole Blood 166 mg/dL (60-115)
[2020-06-14] MEDS: Insulin Regular/NS 100 UNIT/100 ML PLAST..BAG IVCONT (04:06)
[2020-06-14 04:13] LABS: Glucose, Whole Blood 153 mg/dL (60-115)
[2020-06-14 05:14] LABS: Glucose, Whole Blood 146 mg/dL (60-115)
--- NOTE | 2020-06-14 05:24 | PC.NURSE ---
Pt has no cough/gag, pupils uneven, right is irregular- 7mm and 5mm non reactive. No response to pain, does not over breath ventilator. SBP 170's- 180s with repo/bath. returned to 110s-130s, Temp 97.0- goal of temp >88.0, hot packs and extra blankets given with good effect. Pt u/o notitced to be 0-20ml/hr for several hours, per [facility] recommendation lasix given with good effect. Levothyroxine turned off per eMAR.
[2020-06-14 05:47] LABS: Basophils Percent Auto 0.1 % (0-2); Hematocrit 28.2 % (37-47); Hemoglobin 9.1 g/dl (12.0-16.0); Imm Gran Abs Auto 0.29 X10*3/uL (0.00-0.03); Imm Gran Pct Auto 1.1 % (0.0-0.4); Lymphocytes Absolute Auto 1.3 X10*3/uL (1.2-4.9); Lymphocytes Percent Auto 5.2 % (20-40); MANUAL DIFF FLAG SCAN; Mean Corpuscular HGB Conc 32.3 g/dl (31.0-35.0); Mean Corpuscular Hemoglobin 31.2 pg (27.0-33.0); Mean Corpuscular Volume 96.6 fL (80-98); Mean Platelet Volume 10.1 fL (9.4-12.3); Monocytes Absolute Auto 1.2 X10*3/uL (0.1-1.2); Monocytes Percent Auto 4.6 % (2-11); Neutrophils Absolute Auto 22.5 X10*3/uL (2.0-8.3); Platelet Count 222 X10*3/uL (160-400); Red Blood Count 2.92 X10*6/uL (4.20-5.50); Red Cell Distribution Width 13.9 % (11.0-16.0); SCAN SMEAR FLAG 1; White Blood Count 25.3 X10*3/uL (4.8-10.8)
[2020-06-14 06:00] LABS: INTERNATIONAL NORM RATIO 1.1 (0.9-1.1); Prothrombin Time 12.9 SEC (10.8-13.0)
[2020-06-14 06:06] LABS: Anion Gap 14 (12-20); Blood Urea Nitrogen 11 mg/dL (9-16); Carbon Dioxide 25 mmol/L (22-29); Chloride 111 mmol/L (96-108); Creatinine Clr Calc Pharmacy 93.2; Estimated Glomerular Filt Rate > 60; Glucose Random 157 mg/dL (60-115); Potassium 3.2 mmol/L (3.3-5.1); Sodium 147 mmol/L (135-145)
[2020-06-14 06:11] LABS: Alanine Aminotransferase 31 U/L (0-31); Alkaline Phosphatase 54 U/L (39-117); Aspartate Amino Transferase 20 U/L (5-31); Bilirubin Direct < 0.2 mg/dL (0.0-0.5); Bilirubin Total 0.4 mg/dL (0.0-1.0); Magnesium 1.7 mg/dL (1.6-2.6); Total Protein 5.2 g/dL (6.5-8.0)
[2020-06-14 06:23] LABS: Glucose, Whole Blood 171 mg/dL (60-115)
[2020-06-14] MEDS: Pantoprazole Sodium 40 MG/10 ML VIAL IVPUSH (06:25)
[2020-06-14] MEDS: Piperacillin Sodium/Tazobactam 3.375 GM in 0.9 % Sodium Chloride 50 ML IV ×2 (06:27→10:14)
[2020-06-14 07:14] LABS: Glucose, Whole Blood 176 mg/dL (60-115)
[2020-06-14] MEDS: Chlorhexidine Gluc Oral Rinse 15 ML MOUTHWASH BUCCAL ×2 (07:33→14:33)
[2020-06-14] MEDS: Heparin Sodium,Porcine 5,000 UNIT/ML VIAL 5000 UNIT SUBCUT ×2 (07:34→14:33)
[2020-06-14] MEDS: Potassium Chloride/H20 40 MEQ/100 ML PIGGYBACK 100 MEQ IV ×2 (07:34→09:02)
[2020-06-14 08:09] LABS: Glucose, Whole Blood 170 mg/dL (60-115)
[2020-06-14 08:52] LABS: ABG Base Excess 1.2 mmol/L; ABG HCO3 24 mmol/L (22-26); ABG pCO2 31 mmHg (32-45); ABG pCO2 TC 30 mmHg (32-45); ABG pH 7.48 (7.35-7.45); ABG pO2 240 mmHg (83-108); ABG pO2 TC 234 (83-108)
[2020-06-14 08:52] LABS: ABG Refer to POC result
[2020-06-14 09:16] LABS: Glucose, Whole Blood 122 mg/dL (60-115)
[2020-06-14 10:20] LABS: Glucose, Whole Blood 117 mg/dL (60-115)
[2020-06-14 10:31] LABS: Basophils Percent Auto 0.1 % (0-2); Hematocrit 27.3 % (37-47); Hemoglobin 8.8 g/dl (12.0-16.0); Imm Gran Abs Auto 0.31 X10*3/uL (0.00-0.03); Imm Gran Pct Auto 1.2 % (0.0-0.4); Lymphocytes Absolute Auto 1.4 X10*3/uL (1.2-4.9); Lymphocytes Percent Auto 5.5 % (20-40); Mean Corpuscular HGB Conc 32.2 g/dl (31.0-35.0); Mean Corpuscular Volume 96.1 fL (80-98); Monocytes Absolute Auto 1.6 X10*3/uL (0.1-1.2); Monocytes Percent Auto 6.2 % (2-11); Neutrophils Absolute Auto 22.4 X10*3/uL (2.0-8.3); Platelet Count 217 X10*3/uL (160-400); Red Blood Count 2.84 X10*6/uL (4.20-5.50); Red Cell Distribution Width 13.7 % (11.0-16.0); SCAN SMEAR FLAG 1; White Blood Count 25.8 X10*3/uL (4.8-10.8)
--- NOTE | 2020-06-14 10:33 | MHC.CM.PN ---
Pt remains in ICU on ventilatory support awaiting OR time later this afternoon for organ procurement arranged through [facility]. Per discussion in rounds, OR time is scheduled for 5pm. Pt's parents and young son were in on 06/13 late afternoon to visit. CARE team was present for supportive services. [facility] RN present to assist with procedural questions. CM will follow for any changes in plans
[2020-06-14 10:37] LABS: INTERNATIONAL NORM RATIO 1.1 (0.9-1.1)
[2020-06-14 10:39] LABS: Partial Thromboplastin Time 36.9 SEC (24.1-38.0)
[2020-06-14 10:45] LABS: ABG Base Excess 0.5 mmol/L; ABG HCO3 24 mmol/L (22-26); ABG pCO2 34 mmHg (32-45); ABG pCO2 TC 32 mmHg (32-45); ABG pH 7.45 (7.35-7.45); ABG pH TC 7.46 (7.35-7.45); ABG pO2 446 mmHg (83-108); ABG pO2 TC 440 (83-108)
[2020-06-14 10:53] LABS: Phosphorus 3.5 mg/dL (2.7-4.5)
[2020-06-14 10:55] LABS: Magnesium 1.8 mg/dL (1.6-2.6)
[2020-06-14 10:56] LABS: Anion Gap 12 (12-20); Blood Urea Nitrogen 9 mg/dL (9-16); Calcium 8.1 mg/dL (8.4-10.2); Carbon Dioxide 25 mmol/L (22-29); Chloride 115 mmol/L (96-108); Creatinine Clr Calc Pharmacy 101.7; Estimated Glomerular Filt Rate > 60; Glucose Random 120 mg/dL (60-115); Lactic Acid 1.2 mmol/L (0.5-2.0); Potassium 4.8 mmol/L (3.3-5.1); Sodium 147 mmol/L (135-145)
[2020-06-14 11:01] LABS: Alanine Aminotransferase 29 U/L (0-31); Albumin Level 2.9 g/dL (3.5-5.0); Alkaline Phosphatase 53 U/L (39-117); Aspartate Amino Transferase 18 U/L (5-31); Bilirubin Direct 0.2 mg/dL (0.0-0.5); Bilirubin Direct < 0.2 mg/dL (0.0-0.5); Bilirubin Total 0.2 mg/dL (0.0-1.0); Total Protein 5.1 g/dL (6.5-8.0)
[2020-06-14 11:02] LABS: Amylase 26 U/L (28-100); Lipase 25 U/L (8-78)
[2020-06-14 11:03] LABS: Vancomycin Trough 7.8 mcg/mL (10.0-20.0)
[2020-06-14] MEDS: vancomycin HCL 750 MG in 0.9 % Sodium Chloride 250 ML 270 MG IV (11:45)
[2020-06-14 11:51] LABS: Glucose Urine UA NEG (NEG); Leukocyte Esterase Urine NEG (NEG); Nitrite Urine NEG (NEG); Urine Blood NEG (NEG); Urine Ketones NEG (NEG); Urine Protein NEG (NEG-TRACE)
[2020-06-14 11:53] LABS: Appearance Urine CLEAR; Color Urine STRAW
[2020-06-14 12:10] LABS: Glucose, Whole Blood 157 mg/dL (60-115)
[2020-06-14 13:57] LABS: Glucose, Whole Blood 163 mg/dL (60-115)
--- NOTE | 2020-06-14 14:28 | P.PNCC_ITS ---
Subjective Subjective Date of Service: 06/14/20 Interval History: 35-year-old lady with underlying history of substance abuse admitted on 06/11/2020 after an out of hospital cardiac arrest with unclear down time (minimum of 15 minutes) with return of spontaneous circulation achieved after approximately 15 minutes of CPR, intubated on the field. Upon arrival to emergency room central line was placed for vasopressor support. Patient initial CT head was significant for significant anoxic injury with uncal herniation. 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 She was treated with desmopressin. Patient's mother was notified of essentially no chances of recovery and decided to proceed with organ donation. Patient's family requested no brain examination. No events overnight. Physical Exam Vital Signs: Vital Signs: Last Vital Signs Temp 97.2 F 06/14/20 14:00 Pulse 95 06/14/20 14:00 Resp 16 06/14/20 14:00 BP 124/68 06/14/20 14:00 Pulse Ox 100 06/14/20 14:00 Body Mass Index 21.2 Const: General: other (Comatose) Eyes: Sclerae: sclerae normal Pupils: Fixed pupils Neck: Neck: Yes no lymphadenopathy, Yes trachea midline and Yes supple Resp: Auscultation: clear to auscultation bilaterally Cardio: Rate: regular rate Rhythm: regular rhythm Heart sounds: no gallops, no murmurs and no rubs GI: Palpation (GI): Soft to palpation and Other GI palpation findings present ( Nontender) Auscultation: normal bowel sounds Extrem: General: Yes no pedal edema, No clubbing and No cyanosis Objective Data Labs CBC & Chem 7: 06/14/20 10:12 06/14/20 08:40 Labs: Laboratory Results - last 24 hr 06/13/20 06/13/20 06/13/20 13:20 13:20 15:08 WBC RBC Hgb Hct MCV MCH MCHC RDW Plt Count MPV Immature Gran % (Auto) Neut % (Auto) Lymph % (Auto) [place] % (Auto) Eos % (Auto) Baso % (Auto) Lymph # (Auto) [place] # (Auto) Eos # (Auto) Baso # (Auto) Abs Immat Gran (auto) Absolute Neuts (auto) Absolute Nucleated RBC Nucleated RBC % (auto) Smear Tech's Comments PT INR APTT O2 Saturation ABG pH at Pt Temp ABG pH (Temp Correct) ABG pCO2 at Pt Temp ABG pCO2 (Temp Corrct ABG pO2 at Pt Temp ABG pO2 (Temp Correct ABG HCO3 ABG Base Excess (Actual) Sodium Potassium Chloride Carbon Dioxide Anion Gap BUN Creatinine Estim Creat Clear Calc Estimated GFR POC Glucose 197 H Random Glucose Estimat Average Glucose 85 Hemoglobin A1c % 4.6 Lactic Acid Calcium Phosphorus Magnesium Total Bilirubin Direct Bilirubin AST ALT Alkaline Phosphatase Troponin I High Sens 515.1 H D Total Protein Albumin Amylase Lipase Urine Color Urine Appearance Urine pH Ur Specific [place] Urine Protein Urine Glucose (UA) Urine Ketones Urine Blood Urine Nitrite Ur Leukocyte Esterase Vancomycin Trough 06/13/20 06/13/20 06/13/20 16:18 16:20 16:53 WBC RBC Hgb Hct MCV MCH MCHC RDW Plt Count MPV Immature Gran % (Auto) Neut % (Auto) Lymph % (Auto) [place] % (Auto) Eos % (Auto) Baso % (Auto) Lymph # (Auto) [place] # (Auto) Eos # (Auto) Baso # (Auto) Abs Immat Gran (auto) Absolute Neuts (auto) Absolute Nucleated RBC Nucleated RBC % (auto) Smear Tech's Comments PT INR APTT O2 Saturation 99.0 ABG pH at Pt Temp 7.48 H ABG pH (Temp Correct) 7.50 H ABG pCO2 at Pt Temp 33 ABG pCO2 (Temp Corrct 31 L ABG pO2 at Pt Temp 544 H ABG pO2 (Temp Correct 533 H ABG HCO3 24 ABG Base Excess (Actual) 1.6 Sodium Potassium Chloride Carbon Dioxide Anion Gap BUN Creatinine Estim Creat Clear Calc Estimated GFR POC Glucose 180 H 177 H Random Glucose Estimat Average Glucose Hemoglobin A1c % Lactic Acid Calcium Phosphorus Magnesium Total Bilirubin Direct Bilirubin AST ALT Alkaline Phosphatase Troponin I High Sens Total Protein Albumin Amylase Lipase Urine Color Urine Appearance Urine pH Ur Specific [place] Urine Protein Urine Glucose (UA) Urine Ketones Urine Blood Urine Nitrite Ur Leukocyte Esterase Vancomycin Trough 06/13/20 06/13/20 06/13/20 17:09 17:10 17:10 WBC 18.6 H RBC 3.04 L Hgb 9.5 L Hct 29.2 L MCV 96.1 MCH 31.3 MCHC 32.5 RDW 13.9 Plt Count 209 MPV 9.9 Immature Gran % (Auto) 0.6 H Neut % (Auto) 88.8 H Lymph % (Auto) 6.7 L [place] % (Auto) 3.8 Eos % (Auto) 0.0 Baso % (Auto) 0.1 Lymph # (Auto) 1.2 [place] # (Auto) 0.7 Eos # (Auto) 0.0 Baso # (Auto) 0.0 Abs Immat Gran (auto) 0.12 H Absolute Neuts (auto) 16.5 H Absolute Nucleated RBC 0.000 Nucleated RBC % (auto) 0.0 Smear Tech's Comments PT 13.3 H INR 1.1 APTT O2 Saturation ABG pH at Pt Temp ABG pH (Temp Correct) ABG pCO2 at Pt Temp ABG pCO2 (Temp Corrct ABG pO2 at Pt Temp ABG pO2 (Temp Correct ABG HCO3 ABG Base Excess (Actual) Sodium 157 H Potassium 3.8 Chloride 126 H Carbon Dioxide 23 Anion Gap 12 BUN 13 Creatinine 0.75 Estim Creat Clear Calc 89.5 Estimated GFR > 60 POC Glucose Random Glucose 201 H Estimat Average Glucose Hemoglobin A1c % Lactic Acid Calcium 8.0 L D Phosphorus Magnesium Total Bilirubin Direct Bilirubin AST ALT Alkaline Phosphatase Troponin I High Sens Total Protein Albumin Amylase Lipase Urine Color Urine Appearance Urine pH Ur Specific [place] Urine Protein Urine Glucose (UA) Urine Ketones Urine Blood Urine Nitrite Ur Leukocyte Esterase Vancomycin Trough 06/13/20 06/13/20 06/13/20 18:06 18:59 21:00 WBC RBC Hgb Hct MCV MCH MCHC RDW Plt Count MPV Immature Gran % (Auto) Neut % (Auto) Lymph % (Auto) [place] % (Auto) Eos % (Auto) Baso % (Auto) Lymph # (Auto) [place] # (Auto) Eos # (Auto) Baso # (Auto) Abs Immat Gran (auto) Absolute Neuts (auto) Absolute Nucleated RBC Nucleated RBC % (auto) Smear Tech's Comments PT INR APTT O2 Saturation ABG pH at Pt Temp ABG pH (Temp Correct) ABG pCO2 at Pt Temp ABG pCO2 (Temp Corrct ABG pO2 at Pt Temp ABG pO2 (Temp Correct ABG HCO3 ABG Base Excess (Actual) Sodium Potassium Chloride Carbon Dioxide Anion Gap BUN Creatinine Estim Creat Clear Calc Estimated GFR POC Glucose 165 H 157 H 179 H Random Glucose Estimat Average Glucose Hemoglobin A1c % Lactic Acid Calcium Phosphorus Magnesium Total Bilirubin Direct Bilirubin AST ALT Alkaline Phosphatase Troponin I High Sens Total Protein Albumin Amylase Lipase Urine Color Urine Appearance Urine pH Ur Specific [place] Urine Protein Urine Glucose (UA) Urine Ketones Urine Blood Urine Nitrite Ur Leukocyte Esterase Vancomycin Trough 06/13/20 06/13/20 06/13/20 21:12 21:15 21:15 WBC RBC Hgb Hct MCV MCH MCHC RDW Plt Count MPV Immature Gran % (Auto) Neut % (Auto) Lymph % (Auto) [place] % (Auto) Eos % (Auto) Baso % (Auto) Lymph # (Auto) [place] # (Auto) Eos # (Auto) Baso # (Auto) Abs Immat Gran (auto) Absolute Neuts (auto) Absolute Nucleated RBC Nucleated RBC % (auto) Smear Tech's Comments PT INR APTT O2 Saturation ABG pH at Pt Temp ABG pH (Temp Correct) ABG pCO2 at Pt Temp ABG pCO2 (Temp Corrct ABG pO2 at Pt Temp ABG pO2 (Temp Correct ABG HCO3 ABG Base Excess (Actual) Sodium 153 H Potassium 3.9 Chloride 121 H Carbon Dioxide 24 Anion Gap 12 BUN 14 Creatinine 0.78 Estim Creat Clear Calc 86.0 Estimated GFR > 60 POC Glucose 188 H Random Glucose 197 H Estimat Average Glucose Hemoglobin A1c % Lactic Acid 1.8 Calcium 8.1 L Phosphorus 3.8 Magnesium 2.2 Total Bilirubin 0.4 Direct Bilirubin < 0.2 AST 22 ALT 31 Alkaline Phosphatase 49 Troponin I High Sens Total Protein 4.9 L Albumin 2.8 L Amylase Lipase Urine Color Urine Appearance Urine pH Ur Specific [place] Urine Protein Urine Glucose (UA) Urine Ketones Urine Blood Urine Nitrite Ur Leukocyte Esterase Vancomycin Trough 06/13/20 06/13/20 06/13/20 21:15 21:56 22:52 WBC RBC Hgb Hct MCV MCH MCHC RDW Plt Count MPV Immature Gran % (Auto) Neut % (Auto) Lymph % (Auto) [place] % (Auto) Eos % (Auto) Baso % (Auto) Lymph # (Auto) [place] # (Auto) Eos # (Auto) Baso # (Auto) Abs Immat Gran (auto) Absolute Neuts (auto) Absolute Nucleated RBC Nucleated RBC % (auto) Smear Tech's Comments PT INR APTT O2 Saturation ABG pH at Pt Temp ABG pH (Temp Correct) ABG pCO2 at Pt Temp ABG pCO2 (Temp Corrct ABG pO2 at Pt Temp ABG pO2 (Temp Correct ABG HCO3 ABG Base Excess (Actual) Sodium Potassium Chloride Carbon Dioxide Anion Gap BUN Creatinine Estim Creat Clear Calc Estimated GFR POC Glucose 185 H 173 H Random Glucose Estimat Average Glucose Hemoglobin A1c % Lactic Acid Calcium Phosphorus Magnesium Total Bilirubin Direct Bilirubin AST ALT Alkaline Phosphatase Troponin I High Sens Total Protein Albumin Amylase 19 L D Lipase 9 Urine Color Urine Appearance Urine pH Ur Specific [place] Urine Protein Urine Glucose (UA) Urine Ketones Urine Blood Urine Nitrite Ur Leukocyte Esterase Vancomycin Trough 06/14/20 06/14/20 06/14/20 00:03 00:15 00:15 WBC 24.0 H RBC 2.97 L Hgb 9.3 L Hct 28.6 L MCV 96.3 MCH 31.3 MCHC 32.5 RDW 14.0 Plt Count 230 MPV 9.6 Immature Gran % (Auto) 0.8 H Neut % (Auto) 88.1 H Lymph % (Auto) 5.4 L [place] % (Auto) 5.6 Eos % (Auto) 0.0 Baso % (Auto) 0.1 Lymph # (Auto) 1.3 [place] # (Auto) 1.3 H Eos # (Auto) 0.0 Baso # (Auto) 0.0 Abs Immat Gran (auto) 0.20 H Absolute Neuts (auto) 21.1 H Absolute Nucleated RBC 0.000 Nucleated RBC % (auto) 0.0 Smear Tech's Comments VERIFIED PT INR APTT O2 Saturation ABG pH at Pt Temp ABG pH (Temp Correct) ABG pCO2 at Pt Temp ABG pCO2 (Temp Corrct ABG pO2 at Pt Temp ABG pO2 (Temp Correct ABG HCO3 ABG Base Excess (Actual) Sodium Potassium Chloride Carbon Dioxide Anion Gap BUN Creatinine Estim Creat Clear Calc Estimated GFR POC Glucose Random Glucose Estimat Average Glucose Hemoglobin A1c % Lactic Acid Calcium Phosphorus Magnesium Cancelled Total Bilirubin Direct Bilirubin AST ALT Alkaline Phosphatase Troponin I High Sens Total Protein Albumin Amylase Lipase Urine Color COLORLESS Urine Appearance CLEAR Urine pH 6.0 Ur Specific [place] 1.015 Urine Protein NEG Urine Glucose (UA) NEG Urine Ketones NEG Urine Blood NEG Urine Nitrite NEG Ur Leukocyte Esterase NEG Vancomycin Trough 06/14/20 06/14/20 06/14/20 00:15 00:15 00:15 WBC RBC Hgb Hct MCV MCH MCHC RDW Plt Count MPV Immature Gran % (Auto) Neut % (Auto) Lymph % (Auto) [place] % (Auto) Eos % (Auto) Baso % (Auto) Lymph # (Auto) [place] # (Auto) Eos # (Auto) Baso # (Auto) Abs Immat Gran (auto) Absolute Neuts (auto) Absolute Nucleated RBC Nucleated RBC % (auto) Smear Tech's Comments PT INR APTT O2 Saturation ABG pH at Pt Temp ABG pH (Temp Correct) ABG pCO2 at Pt Temp ABG pCO2 (Temp Corrct ABG pO2 at Pt Temp ABG pO2 (Temp Correct ABG HCO3 ABG Base Excess (Actual) Sodium Potassium Chloride Carbon Dioxide Anion Gap BUN Creatinine Estim Creat Clear Calc Estimated GFR POC Glucose Random Glucose Estimat Average Glucose Hemoglobin A1c % Lactic Acid Calcium Cancelled 8.1 L Phosphorus Cancelled 3.7 Magnesium 2.0 Total Bilirubin 0.4 Direct Bilirubin < 0.2 AST 20 ALT 33 H Alkaline Phosphatase 51 Troponin I High Sens Total Protein 5.1 L Albumin 2.9 L Amylase Lipase Urine Color Urine Appearance Urine pH Ur Specific [place] Urine Protein Urine Glucose (UA) Urine Ketones Urine Blood Urine Nitrite Ur Leukocyte Esterase Vancomycin Trough 06/14/20 06/14/20 06/14/20 00:15 00:21 01:35 WBC RBC Hgb Hct MCV MCH MCHC RDW Plt Count MPV Immature Gran % (Auto) Neut % (Auto) Lymph % (Auto) [place] % (Auto) Eos % (Auto) Baso % (Auto) Lymph # (Auto) [place] # (Auto) Eos # (Auto) Baso # (Auto) Abs Immat Gran (auto) Absolute Neuts (auto) Absolute Nucleated RBC Nucleated RBC % (auto) Smear Tech's Comments PT 13.1 H INR 1.1 APTT O2 Saturation ABG pH at Pt Temp ABG pH (Temp Correct) ABG pCO2 at Pt Temp ABG pCO2 (Temp Corrct ABG pO2 at Pt Temp ABG pO2 (Temp Correct ABG HCO3 ABG Base Excess (Actual) Sodium Potassium Chloride Carbon Dioxide Anion Gap BUN Creatinine Estim Creat Clear Calc Estimated GFR POC Glucose 157 H 166 H Random Glucose Estimat Average Glucose Hemoglobin A1c % Lactic Acid Calcium Phosphorus Magnesium Total Bilirubin Direct Bilirubin AST ALT Alkaline Phosphatase Troponin I High Sens Total Protein Albumin Amylase Lipase Urine Color Urine Appearance Urine pH Ur Specific [place] Urine Protein Urine Glucose (UA) Urine Ketones Urine Blood Urine Nitrite Ur Leukocyte Esterase Vancomycin Trough 06/14/20 06/14/20 06/14/20 04:09 05:05 05:05 WBC 25.3 H RBC 2.92 L Hgb 9.1 L Hct 28.2 L MCV 96.6 MCH 31.2 MCHC 32.3 RDW 13.9 Plt Count 222 MPV 10.1 Immature Gran % (Auto) 1.1 H Neut % (Auto) 89.0 H Lymph % (Auto) 5.2 L [place] % (Auto) 4.6 Eos % (Auto) 0.0 Baso % (Auto) 0.1 Lymph # (Auto) 1.3 [place] # (Auto) 1.2 Eos # (Auto) 0.0 Baso # (Auto) 0.0 Abs Immat Gran (auto) 0.29 H Absolute Neuts (auto) 22.5 H Absolute Nucleated RBC 0.000 Nucleated RBC % (auto) 0.0 Smear Tech's Comments PT INR APTT O2 Saturation ABG pH at Pt Temp ABG pH (Temp Correct) ABG pCO2 at Pt Temp ABG pCO2 (Temp Corrct ABG pO2 at Pt Temp ABG pO2 (Temp Correct ABG HCO3 ABG Base Excess (Actual) Sodium Potassium Chloride Carbon Dioxide Anion Gap BUN Creatinine Estim Creat Clear Calc Estimated GFR POC Glucose 153 H Random Glucose Estimat Average Glucose Hemoglobin A1c % Lactic Acid Calcium 8.0 L Phosphorus 4.0 Magnesium 1.7 Total Bilirubin 0.4 Direct Bilirubin < 0.2 AST 20 ALT 31 Alkaline Phosphatase 54 Troponin I High Sens Total Protein 5.2 L Albumin 3.0 L Amylase Lipase Urine Color Urine Appearance Urine pH Ur Specific [place] Urine Protein Urine Glucose (UA) Urine Ketones Urine Blood Urine Nitrite Ur Leukocyte Esterase Vancomycin Trough 06/14/20 06/14/20 06/14/20 05:05 05:05 05:11 WBC RBC Hgb Hct MCV MCH MCHC RDW Plt Count MPV Immature Gran % (Auto) Neut % (Auto) Lymph % (Auto) [place] % (Auto) Eos % (Auto) Baso % (Auto) Lymph # (Auto) [place] # (Auto) Eos # (Auto) Baso # (Auto) Abs Immat Gran (auto) Absolute Neuts (auto) Absolute Nucleated RBC Nucleated RBC % (auto) Smear Tech's Comments PT 12.9 INR 1.1 APTT O2 Saturation ABG pH at Pt Temp ABG pH (Temp Correct) ABG pCO2 at Pt Temp ABG pCO2 (Temp Corrct ABG pO2 at Pt Temp ABG pO2 (Temp Correct ABG HCO3 ABG Base Excess (Actual) Sodium 147 H Potassium 3.2 L Chloride 111 H Carbon Dioxide 25 Anion Gap 14 BUN 11 Creatinine 0.72 Estim Creat Clear Calc 93.2 Estimated GFR > 60 POC Glucose 146 H Random Glucose 157 H Estimat Average Glucose Hemoglobin A1c % Lactic Acid Calcium 8.0 L Phosphorus Magnesium Total Bilirubin Direct Bilirubin AST ALT Alkaline Phosphatase Troponin I High Sens Total Protein Albumin Amylase Lipase Urine Color Urine Appearance Urine pH Ur Specific [place] Urine Protein Urine Glucose (UA) Urine Ketones Urine Blood Urine Nitrite Ur Leukocyte Esterase Vancomycin Trough 06/14/20 06/14/20 06/14/20 06:18 07:10 08:03 WBC RBC Hgb Hct MCV MCH MCHC RDW Plt Count MPV Immature Gran % (Auto) Neut % (Auto) Lymph % (Auto) [place] % (Auto) Eos % (Auto) Baso % (Auto) Lymph # (Auto) [place] # (Auto) Eos # (Auto) Baso # (Auto) Abs Immat Gran (auto) Absolute Neuts (auto) Absolute Nucleated RBC Nucleated RBC % (auto) Smear Tech's Comments PT INR APTT O2 Saturation ABG pH at Pt Temp ABG pH (Temp Correct) ABG pCO2 at Pt Temp ABG pCO2 (Temp Corrct ABG pO2 at Pt Temp ABG pO2 (Temp Correct ABG HCO3 ABG Base Excess (Actual) Sodium Potassium Chloride Carbon Dioxide Anion Gap BUN Creatinine Estim Creat Clear Calc Estimated GFR POC Glucose 171 H 176 H 170 H Random Glucose Estimat Average Glucose Hemoglobin A1c % Lactic Acid Calcium Phosphorus Magnesium Total Bilirubin Direct Bilirubin AST ALT Alkaline Phosphatase Troponin I High Sens Total Protein Albumin Amylase Lipase Urine Color Urine Appearance Urine pH Ur Specific [place] Urine Protein Urine Glucose (UA) Urine Ketones Urine Blood Urine Nitrite Ur Leukocyte Esterase Vancomycin Trough 06/14/20 06/14/20 06/14/20 08:40 08:40 08:40 WBC RBC Hgb Hct MCV MCH MCHC RDW Plt Count MPV Immature Gran % (Auto) Neut % (Auto) Lymph % (Auto) [place] % (Auto) Eos % (Auto) Baso % (Auto) Lymph # (Auto) [place] # (Auto) Eos # (Auto) Baso # (Auto) Abs Immat Gran (auto) Absolute Neuts (auto) Absolute Nucleated RBC Nucleated RBC % (auto) Smear Tech's Comments PT INR APTT O2 Saturation ABG pH at Pt Temp ABG pH (Temp Correct) ABG pCO2 at Pt Temp ABG pCO2 (Temp Corrct ABG pO2 at Pt Temp ABG pO2 (Temp Correct ABG HCO3 ABG Base Excess (Actual) Sodium Potassium Chloride Carbon Dioxide Anion Gap BUN Creatinine Estim Creat Clear Calc Estimated GFR POC Glucose Random Glucose Estimat Average Glucose Hemoglobin A1c % Lactic Acid 1.2 Calcium Phosphorus Magnesium Total Bilirubin Direct Bilirubin AST ALT Alkaline Phosphatase Troponin I High Sens Total Protein Albumin Amylase 26 L D Lipase 25 Urine Color Urine Appearance Urine pH Ur Specific [place] Urine Protein Urine Glucose (UA) Urine Ketones Urine Blood Urine Nitrite Ur Leukocyte Esterase Vancomycin Trough 7.8 L 06/14/20 06/14/20 06/14/20 08:40 08:44 09:10 WBC RBC Hgb Hct MCV MCH MCHC RDW Plt Count MPV Immature Gran % (Auto) Neut % (Auto) Lymph % (Auto) [place] % (Auto) Eos % (Auto) Baso % (Auto) Lymph # (Auto) [place] # (Auto) Eos # (Auto) Baso # (Auto) Abs Immat Gran (auto) Absolute Neuts (auto) Absolute Nucleated RBC Nucleated RBC % (auto) Smear Tech's Comments PT INR APTT O2 Saturation 99.0 ABG pH at Pt Temp 7.48 H ABG pH (Temp Correct) 7.50 H ABG pCO2 at Pt Temp 31 L ABG pCO2 (Temp Corrct 30 L ABG pO2 at Pt Temp 240 H ABG pO2 (Temp Correct 234 H ABG HCO3 24 ABG Base Excess (Actual) 1.2 Sodium 147 H Potassium 4.8 D Chloride 115 H Carbon Dioxide 25 Anion Gap 12 BUN 9 Creatinine 0.66 Estim Creat Clear Calc 101.7 Estimated GFR > 60 POC Glucose 122 H Random Glucose 120 H Estimat Average Glucose Hemoglobin A1c % Lactic Acid Calcium 8.1 L Phosphorus Magnesium Total Bilirubin Direct Bilirubin AST ALT Alkaline Phosphatase Troponin I High Sens Total Protein Albumin Amylase Lipase Urine Color Urine Appearance Urine pH Ur Specific [place] Urine Protein Urine Glucose (UA) Urine Ketones Urine Blood Urine Nitrite Ur Leukocyte Esterase Vancomycin Trough 06/14/20 06/14/20 06/14/20 10:12 10:12 10:12 WBC 25.8 H RBC 2.84 L Hgb 8.8 L Hct 27.3 L MCV 96.1 MCH 31.0 MCHC 32.2 RDW 13.7 Plt Count 217 MPV 10.0 Immature Gran % (Auto) 1.2 H Neut % (Auto) 87.0 H Lymph % (Auto) 5.5 L [place] % (Auto) 6.2 Eos % (Auto) 0.0 Baso % (Auto) 0.1 Lymph # (Auto) 1.4 [place] # (Auto) 1.6 H Eos # (Auto) 0.0 Baso # (Auto) 0.0 Abs Immat Gran (auto) 0.31 H Absolute Neuts (auto) 22.4 H Absolute Nucleated RBC 0.000 Nucleated RBC % (auto) 0.0 Smear Tech's Comments PT INR APTT O2 Saturation ABG pH at Pt Temp ABG pH (Temp Correct) ABG pCO2 at Pt Temp ABG pCO2 (Temp Corrct ABG pO2 at Pt Temp ABG pO2 (Temp Correct ABG HCO3 ABG Base Excess (Actual) Sodium Potassium Chloride Carbon Dioxide Anion Gap BUN Creatinine Estim Creat Clear Calc Estimated GFR POC Glucose Random Glucose Estimat Average Glucose Hemoglobin A1c % Lactic Acid Calcium Phosphorus 3.5 Magnesium 1.8 Total Bilirubin Direct Bilirubin AST ALT Alkaline Phosphatase Troponin I High Sens Total Protein Albumin Amylase Lipase Urine Color Urine Appearance Urine pH Ur Specific [place] Urine Protein Urine Glucose (UA) Urine Ketones Urine Blood Urine Nitrite Ur Leukocyte Esterase Vancomycin Trough 06/14/20 06/14/20 06/14/20 10:12 10:12 10:12 WBC RBC Hgb Hct MCV MCH MCHC RDW Plt Count MPV Immature Gran % (Auto) Neut % (Auto) Lymph % (Auto) [place] % (Auto) Eos % (Auto) Baso % (Auto) Lymph # (Auto) [place] # (Auto) Eos # (Auto) Baso # (Auto) Abs Immat Gran (auto) Absolute Neuts (auto) Absolute Nucleated RBC Nucleated RBC % (auto) Smear Tech's Comments PT 13.0 INR 1.1 APTT 36.9 O2 Saturation ABG pH at Pt Temp ABG pH (Temp Correct) ABG pCO2 at Pt Temp ABG pCO2 (Temp Corrct ABG pO2 at Pt Temp ABG pO2 (Temp Correct ABG HCO3 ABG Base Excess (Actual) Sodium Potassium Chloride Carbon Dioxide Anion Gap BUN Creatinine Estim Creat Clear Calc Estimated GFR POC Glucose Random Glucose Estimat Average Glucose Hemoglobin A1c % Lactic Acid Calcium Phosphorus Magnesium Total Bilirubin 0.2 Direct Bilirubin 0.2 AST 18 ALT 29 Alkaline Phosphatase 53 Troponin I High Sens Total Protein 5.1 L Albumin 2.9 L Amylase Lipase Urine Color Urine Appearance Urine pH Ur Specific [place] Urine Protein Urine Glucose (UA) Urine Ketones Urine Blood Urine Nitrite Ur Leukocyte Esterase Vancomycin Trough 06/14/20 06/14/20 06/14/20 10:12 10:17 10:38 WBC RBC Hgb Hct MCV MCH MCHC RDW Plt Count MPV Immature Gran % (Auto) Neut % (Auto) Lymph % (Auto) [place] % (Auto) Eos % (Auto) Baso % (Auto) Lymph # (Auto) [place] # (Auto) Eos # (Auto) Baso # (Auto) Abs Immat Gran (auto) Absolute Neuts (auto) Absolute Nucleated RBC Nucleated RBC % (auto) Smear Tech's Comments PT INR APTT O2 Saturation 99.0 ABG pH at Pt Temp 7.45 ABG pH (Temp Correct) 7.46 H ABG pCO2 at Pt Temp 34 ABG pCO2 (Temp Corrct 32 ABG pO2 at Pt Temp 446 H ABG pO2 (Temp Correct 440 H ABG HCO3 24 ABG Base Excess (Actual) 0.5 Sodium Potassium Chloride Carbon Dioxide Anion Gap BUN Creatinine Estim Creat Clear Calc Estimated GFR POC Glucose 117 H Random Glucose Estimat Average Glucose Hemoglobin A1c % Lactic Acid Calcium Phosphorus Magnesium Total Bilirubin Direct Bilirubin < 0.2 AST ALT Alkaline Phosphatase Troponin I High Sens Total Protein Albumin Amylase Lipase Urine Color Urine Appearance Urine pH Ur Specific [place] Urine Protein Urine Glucose (UA) Urine Ketones Urine Blood Urine Nitrite Ur Leukocyte Esterase Vancomycin Trough 06/14/20 06/14/20 06/14/20 11:06 12:05 13:54 WBC RBC Hgb Hct MCV MCH MCHC RDW Plt Count MPV Immature Gran % (Auto) Neut % (Auto) Lymph % (Auto) [place] % (Auto) Eos % (Auto) Baso % (Auto) Lymph # (Auto) [place] # (Auto) Eos # (Auto) Baso # (Auto) Abs Immat Gran (auto) Absolute Neuts (auto) Absolute Nucleated RBC Nucleated RBC % (auto) Smear Tech's Comments PT INR APTT O2 Saturation ABG pH at Pt Temp ABG pH (Temp Correct) ABG pCO2 at Pt Temp ABG pCO2 (Temp Corrct ABG pO2 at Pt Temp ABG pO2 (Temp Correct ABG HCO3 ABG Base Excess (Actual) Sodium Potassium Chloride Carbon Dioxide Anion Gap BUN Creatinine Estim Creat Clear Calc Estimated GFR POC Glucose 157 H 163 H Random Glucose Estimat Average Glucose Hemoglobin A1c % Lactic Acid Calcium Phosphorus Magnesium Total Bilirubin Direct Bilirubin AST ALT Alkaline Phosphatase Troponin I High Sens Total Protein Albumin Amylase Lipase Urine Color STRAW Urine Appearance CLEAR Urine pH 7.0 Ur Specific [place] 1.010 Urine Protein NEG Urine Glucose (UA) NEG Urine Ketones NEG Urine Blood NEG Urine Nitrite NEG Ur Leukocyte Esterase NEG Vancomycin Trough Microbiology Microbiology Results: Microbiology 06/12/20 12:52 Blood - Venous Blood Culture - Preliminary No growth after 48 hours. 06/12/20 12:52 Blood - Venous Blood Culture - Preliminary No growth after 48 hours. 06/13/20 15:33 Sputum - Suctioned Gram Stain - Final 06/13/20 15:33 Sputum - Suctioned Sputum Culture - Preliminary Culture in progress. 06/11/20 21:13 Blood - Venous Blood Culture - Final Serratia marcescens 06/11/20 21:13 Blood - Venous Blood Culture - Preliminary No growth after 48 hours. Progress Note: A&P Assessment and plan (1) Diabetes insipidus: Status: Acute Assessment and Plan: Assessment: 35-year-old with underlying substance abuse admitted after an out of hospital cardiac arrest with severe anoxic injury and uncal herniation on admission CT scan of the head, being evaluated for organ donation. Plan: Neuro: Severe anoxic encephalopathy after an out of hospital cardiac arrest likely secondary to underlying substance abuse with resultant on-call herniation and brain edema. Patient's family requested no brain examination. Cardiac: Blood pressure labile. Status post out of hospital cardiac arrest likely secondary to substance abuse. Arterial line placed for hemodynamic monitoring. Esmolol drip for hypertensive emergency associated with brain edema. Pulmonary: Acute respiratory failure, intubated during the cardiopulmonary resuscitation. Continue ventilatory support during organ donation evaluation. 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 Continue to monitor electrolytes and urine output. Endo: No acute issues. GI: No acute issues. ID: Gram-negative bacteria on initial blood culture Gram stain. Empirically covered with broad-spectrum antibiotics. Repeat blood cultures are negative to date. Heme/Onc: No acute issues. Psych: No acute issues. Miscellaneous: No acute issues. Prophylaxis: Heparin, ppi Diet: Nothing by mouth Critical care time spent: 60 minutes (2) Hypertensive emergency: Status: Acute (3) Brain edema: Status: Acute (4) Bacteremia: Status: Acute (5) Substance abuse: Status: Acute (6) Cardiac arrest: Status: Acute (7) Anoxic brain injury: Status: Acute Critical Care Time Critical Care Time (minutes): 60
[2020-06-14 14:55] LABS: ABG Base Excess -2.1 mmol/L; ABG HCO3 20 mmol/L (22-26); ABG pCO2 26 mmHg (32-45); ABG pCO2 TC 25 mmHg (32-45); ABG pH 7.49 (7.35-7.45); ABG pO2 419 mmHg (83-108); ABG pO2 TC 416 (83-108)
[2020-06-14 15:18] LABS: Glucose, Whole Blood 173 mg/dL (60-115)
[2020-06-14] MEDS: Heparin Sodium,Porcine 5,000 UNIT/ML VIAL 30000 UNIT IVPUSH (18:00)
--- NOTE | 2020-06-14 18:19 | PC.NURSE ---
Addendum entered by Robert Hastings RN 06/14/20 18:55: Pt asystolic at 1826, aware, no return of circulation, time of at 1831.IV detached, brought back into room. Mind[employer] monitor still attached to pt's back, wealth management director states will bring back to unit. Original Note: Pt brought to OR [facility] RT, this RN, and tech. Pt started on 0.05mcg/kg/min levophed for SBP 80s. SBP 130s. HR 90. sAo2 100%. Pt was given 30,000 units heparin at 1800 and extubated per RT with present at 1805. Family at pt's side.
--- NOTE | 2020-06-14 18:40 | PM.CCN ---
Critical Care Event Note Summary Date of Service: 06/14/20 Code activated: No Narrative: Patient in comfort measures status prepared for organ donation was taken to operating room and transferred to operating room table. At 18:06 patient was terminally extubated. She has had asystole with no respiratory effort at 18:26 and was pronounced at 18:31. Official time of 18:31. Critical Care Time (minutes): 0
--- NOTE | 2020-06-14 18:46 | P.DN_ITS ---
Discharge Sum: Prov Provider Primary care physician: Sussy Porras MD Discharge Sum: Diag Contributing Factors (1) Diabetes insipidus: (2) Hypertensive emergency: (3) Brain edema: (4) Bacteremia: (5) Substance abuse: (6) Cardiac arrest: (7) Anoxic brain injury: Discharge Sum: Summary Date and Time Date of admission: 06/11/20 20:32 Date of : 06/14/20 Time of : 18:31 Summary Details: 35-year-old lady with underlying history of substance abuse admitted on 06/11/2020 after an out of hospital cardiac arrest with unclear down time (minimum of 15 minutes) with return of spontaneous circulation achieved after approximately 15 minutes of CPR, intubated on the field. Upon arrival to emergency room central line was placed for vasopressor support. Patient initial CT head was significant for significant anoxic injury with uncal herniation. 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 She was treated with desmopressin. Shirley keenan's mother was notified of essentially no chances of recovery and decided to proceed with organ donation. Patient's family requested no brain examination. On 06/14/2020 patient in comfort measures status prepared for organ donation was taken to operating room and transferred to operating room table. At 18:06 patient was terminally extubated. She has had asystole with no respiratory effort at 18:26 and was pronounced at 18:31. Discharge diagnoses: 1. Anoxic brain injury 2. Cardiac arrest 3. Brain edema 4. Diabetes insipidus 5. Bacteremia 6. Substance abuse Additional Data Confirmation of as documented by pronouncing clinician: no pulse, no respirations and pupils fixed and dilated Family: at bedside Attending physician: Paddy Hernandez MD
[2020-06-14 20:00] LABS: ABG pCO2 33 mmHg (32-45); ABG pCO2 TC 33 mmHg (32-45); ABG pH 7.47 (7.35-7.45); ABG pO2 459 mmHg (83-108); ABG pO2 TC 548 (83-108)
[2020-06-14 20:01] LABS: ABG Base Excess 1.9 mmol/L; ABG HCO3 25 mmol/L (22-26)
[2020-06-14 20:02] LABS: ABG pH TC 7.48 (7.35-7.45)
== END 2020-06-14 18:31 | disposition expired | DRG 917 ==
LOC: HO.ED 20:34 → HO.EDOVER 20:44 → HO.ICU 20:44
PROVIDERS: Nurse Practitioner Family; Registered Nurse Community Health; Admitting Provider Internal Medicine Pulmonary Disease; Emergency Provider Emergency Medicine; PCP Internal Medicine; Visit Provider Internal Medicine Pulmonary Disease
DX: T40.5X1A Poisoning by cocaine, accidental (unintentional), initial encounter (principal); J96.00 Acute respiratory failure, unspecified whether with hypoxia or hypercapnia; G93.5 Compression of brain; E23.2 Diabetes insipidus; I16.1 Hypertensive emergency; G93.1 Anoxic brain damage, not elsewhere classified; N17.9 Acute kidney failure, unspecified; I95.9 Hypotension, unspecified; Z20.822 Contact with and (suspected) exposure to COVID-19; Z86.74 Personal history of sudden cardiac arrest; Y92.410 Unspecified street and highway as the place of occurrence of the external cause; Z51.5 Encounter for palliative care
CPT/HCPCS: 36415; 36600; 70450; 71045; 71250; 72125; 74176; 80048; 80053; 80076; 80143; 80179; 80202; 80307; 80320; 81001; 81003; 81025; 82150; 82248; 82310; 82550; 82947; 83036; 83605; 83690; 83735; 84100; 84484; 85007; 85025; 85027; 85610; 85730; 86850; 86900; 87040; 87070; 87077; 87102; 87186; 87205; 87635; 88305; 88331; 93005; 93306; 94002; 94003; 94799; 96374; 96375; 99285; 99291; 99292; J0610; J1940; J2060; J2250; J2543; J2597; J2930; J3010; J3370; J3475